=== PATIENT | female | born 1980 | race Caucasian/White ===

== ENCOUNTER 2023-10-08 08:34 | Emergency (ER) | payer BC, MEDICAID ==
[2023-10-08 09:14] LABS: BASOPHILS % (AUTO) 0.4 %; EOSINOPHILS # (AUTO) 0.3 10^3/uL (0.0-0.7); EOSINOPHILS % (AUTO) 3.2 %; HCT - HEMATOCRIT 38.3 % (37.0-47.0); HGB - HEMOGLOBIN 12.7 g/dL (12.0-16.0); LYMPHOCYTES # (AUTO) 2.2 10^3/uL (1.5-3.5); LYMPHOCYTES % (AUTO) 22.7 %; MEAN CORPUSCULAR HEMOGLOBIN 28.6 pg (27.0-31.0); MEAN CORPUSCULAR HGB CONC 33.2 g/dL (32.0-36.0); MEAN CORPUSCULAR VOLUME 86.3 fL (81.0-99.0); MEAN PLATELET VOLUME 9.2 fL (7.9-10.8); MONOCYTES # (AUTO) 0.9 10^3/uL (0.0-1.0); MONOCYTES % (AUTO) 9.8 %; NEUTROPHILS # (AUTO) 6.1 10^3/uL (1.5-6.6); NEUTROPHILS % (AUTO) 63.7 %; PLT - PLATELET COUNT 313 10^3/uL (130-450); RED BLOOD COUNT 4.44 10^6/uL (4.20-5.40); RED CELL DISTRIBUTION WIDTH 13.7 % (12.0-15.0); WHITE BLOOD COUNT 9.6 x10^3/uL (4.8-10.8)
[2023-10-08 09:19] LABS: BILIRUBIN,URINE NEGATIVE (NEGATIVE); GLUCOSE, URINE (UA) NEGATIVE (NEGATIVE); KETONES,URINE (UA) NEGATIVE (NEGATIVE); LEUKOCYTE ESTERASE, URINE NEGATIVE (NEGATIVE); NITRITE,URINE NEGATIVE (NEGATIVE); OCCULT BLOOD,URINE NEGATIVE (NEGATIVE); PROTEIN,URINE NEGATIVE (NEGATIVE); UROBILINOGEN,URINE 0.2 (NORMAL) E.U./dL (NORMAL)
[2023-10-08 09:22] LABS: CLARITY,URINE CLEAR (CLEAR); HCG UR QUAL NEGATIVE
[2023-10-08 09:42] LABS: ALBUMIN 3.9 g/dL (3.2-5.5); ALBUMIN/GLOBULIN RATIO 1.3 (1.0-2.2); BILIRUBIN,TOTAL 0.4 mg/dL (0.2-1.0); CALCIUM 9.5 mg/dL (8.5-10.3); CREATININE 0.7 mg/dL (0.6-1.3); POTASSIUM 3.8 mmol/L (3.5-4.5); TOTAL PROTEIN 6.8 g/dL (6.4-8.9)
--- NOTE | 2023-10-08 09:49 | ED Physician Documentation ---
PD HPI ABD PAIN - Stated complaint Stated Complaint: STOMACH PX,BLOATING,PX - Chief complaint Chief Complaint: Abd Pain - History obtained from History obtained from: Patient - History of Present Illness Timing - onset: How many days ago (2-3) Timing - duration: Days Timing - details: Gradual onset, Still present Quality: Cramping, Aching, Pain Location: LLQ Radiation: Lower back Associated symptoms: Nausea, Diarrhea (some loose), Loss of appetite. No: Fever, Vomiting, Constipation, Hematochezia, Near syncope / syncope Similar symptoms before: Has not had sx before Review of Systems Constitutional: denies: Fever, Chills Cardiac: denies: Chest pain / pressure Respiratory: denies: Dyspnea GI: reports: Abdominal Pain, Nausea. denies: Vomiting, Constipation, Bloody / black stool : denies: Dysuria, Frequency PD PAST MEDICAL HISTORY - Past Medical History Past Medical History: Yes Endocrine/Autoimmune: Type 2 diabetes : Kidney stones - Past Surgical History Past Surgical History: Yes - Present Medications Home Medications: Ambulatory Orders Medication Instructions Recorded Confirmed Amox/Clav 875/125 [Augmentin] 1 each PO Q12H #14 tablet 10/08/23 Docusate Sodium 100Mg Capsule 100 mg PO DAILY #15 cap 10/08/23 [Colace 100Mg Capsule] Fluconazole [Diflucan] 100 mg PO Q3D #2 tablet 10/08/23 HYDROcod/ACETAM 5/325 [[place] 5/325] 1 ea PO Q6H PRN #14 tablet 10/08/23 L.acid/L.casei/B.bif/B.joyce/Fos 1 each PO TID 7 Days #20 cap 10/08/23 [Probiotic Blend Capsule] Meloxicam [Mobic] 7.5 mg PO BID 7 Days #14 tablet 10/08/23 Ondansetron Odt [Zofran] 4 mg TL Q6H PRN #10 tablet 10/08/23 - Allergies Allergies/Adverse Reactions: Allergies Allergy/AdvReac Type Severity Reaction Status Date / Time No Known Drug Allergies Allergy Verified 10/08/23 08:48 - Social History Does the pt smoke?: No Smoking Status: Never smoker Does the pt drink ETOH?: Yes Does the pt have substance abuse?: No Substance Use and Type: Marijuana - Immunizations Immunizations are current?: Yes - POLST Patient has POLST: No PD ED PE NORMAL - Vitals Vital signs reviewed: Yes - General General: Alert and oriented X 3, No acute distress, Well developed/nourished - Cardiac Cardiac: RRR, No murmur - Respiratory Respiratory: No respiratory distress, Clear bilaterally - Abdomen Abdomen: Soft, Non distended, No organomegaly, Other (tender llq with some local guarding but no percussion nor rebound tendenrness. Rest of abd not tender. ) - Back Back: No CVA TTP, No spinal TTP - Derm Derm: Normal color, Warm and dry, No rash - Extremities Extremities: No edema, No calf tenderness / cord Results - Vitals Vitals: Oxygen O2 Source Room air - Labs Labs: Laboratory Tests 10/08/23 10/08/23 10/08/23 09:04 09:08 09:22 WBC 9.6 RBC 4.44 Hgb 12.7 Hct 38.3 MCV 86.3 MCH 28.6 MCHC 33.2 RDW 13.7 Plt Count 313 MPV 9.2 Neut # (Auto) 6.1 Lymph # (Auto) 2.2 [place] # (Auto) 0.9 Eos # (Auto) 0.3 Baso # (Auto) 0.0 Absolute Nucleated RBC 0.00 Nucleated RBC % 0.0 Sodium 136 Potassium 3.8 Chloride 104 Carbon Dioxide 23 Anion Gap 9.0 BUN 12 Creatinine 0.7 Estimated GFR (MDRD) 91 Glucose 189 H Calcium 9.5 Total Bilirubin 0.4 AST 12 ALT 14 Alkaline Phosphatase 81 Total Protein 6.8 Albumin 3.9 Globulin 2.9 Albumin/Globulin Ratio 1.3 Lipase 20 Urine Color YELLOW Urine Clarity CLEAR Urine pH 6.0 Ur Specific [place] >=1.030 H Urine Protein NEGATIVE Urine Glucose (UA) NEGATIVE Urine Ketones NEGATIVE Urine Occult Blood NEGATIVE Urine Nitrite NEGATIVE Urine Bilirubin NEGATIVE Urine Urobilinogen 0.2 (NORMAL) Ur Leukocyte Esterase NEGATIVE Ur Microscopic Review NOT INDICATED Urine Culture Comments NOT INDICATED Urine HCG, Qual NEGATIVE - Rads (name of study) abd/pelvic CT Relevant Findings:: Prelim report reviewed (local diverticulitis sigmoid area without abscess nor perforation. ), EMP independent interpretation of test PD Medical Decision Making - ED course Complexity details: reviewed results (abd/pelvic CT showing uncomplicated diverticulitis. ), considered differential (left lower abd pain increased for 2- 3 days. Exam without peritoneal signs. Location and progression suggests likely diverticulitis. Consider UTI/pyelo as options too. No skin sores/tender and not in dermatomal area to support early shingles. No recent traume. ), d/w patient Departure - Departure Disposition: 01 Home, Self Care Clinical Impression: Left lower quadrant abdominal pain, Acute diverticulitis Condition: Stable Record reviewed to determine appropriate education?: Yes Instructions: ED Diverticulitis Prescriptions: Amox/Clav 875/125 [Augmentin] 1 each PO Q12H #14 tablet Docusate Sodium 100Mg Capsule [Colace 100Mg Capsule] 100 mg PO DAILY #15 cap Fluconazole [Diflucan] 100 mg PO Q3D #2 tablet Meloxicam [Mobic] 7.5 mg PO BID 7 Days #14 tablet HYDROcod/ACETAM 5/325 [[place] 5/325] 1 ea PO Q6H PRN #14 tablet PRN Reason: Pain L.acid/L.casei/B.bif/B.joyce/Fos [Probiotic Blend Capsule] 1 each PO TID 7 Days #20 cap Ondansetron Odt [Zofran] 4 mg TL Q6H PRN #10 tablet PRN Reason: Nausea / Vomiting Comments: Your CT scan shows an uncomplicated diverticulitis which means no signs of perforation or abscess. You do have a local area of inflammation and infection in the lower intestine causing your pain. We typically treat this with an anti-inflammatory as well as an antibiotic and a mild stool softener. For symptoms would have you take ondansetron if needed for nausea. Tylenol or Percocet if needed for pain. 2 decrease the side effects of the antibiotic, would also use some probiotics a nd I prescribed a Diflucan antifungal to help with reducing yeast infection. Frequent fluids and regular diet as tolerated. I would anticipate improvement over the next few days and resolved by 3 to 5 days. Return if worsening or other complications such as fever, bloody stool, worse pain, vomiting etc. I sent your prescriptions to the [facility] pharmacy. I am prescribing a short course of narcotic pain medication for you. These are potentially dangerous and addictive medications that should be used carefully. These medications may constipate you. Take an btvg-vvl-nonbnqi stool softener such as docusate twice daily with plenty of water while taking these medications. If you go 24 hours without a bowel movement, take tuyk-abx-ktmnpuh MiraLAX, per package instructions. Do not drink or drive while taking these medications. If you received narcotic or sedating medications while in the emergency department do not drive for 24 hours. Store this medication in a safe, secure place and out of reach of children. It is a violation of federal law to give or sell this medication to another person or to use in a manner other than prescribed. The ED will not refill narcotic prescriptions, including prescriptions lost or stolen. You can dispose of unwanted medications at the [facility]'s office or at several pharmacies such as [facility]. Forms: PCP List Discharge Date/Time: 10/08/23 14:03
[2023-10-08] MEDS: SODIUM CHLORIDE 0.9% 1,000 ML IV STA (10:10)
[2023-10-08] MEDS: KETOROLAC 15 MG/ML VIAL IVP STA (10:10)
[2023-10-08] MEDS: HYDROmorphone 1 MG/ML CARPUJECT IVP STA ×2 (10:11→13:50)
[2023-10-08] MEDS ORDERED: iohexoL-300 100 ML VIAL ONE (10:29)
--- NOTE | 2023-10-08 11:23 | CT Report ---
PROCEDURE: Abdomen/Pelvis W INDICATIONS: left abd pain for 1-2 days, increasing CONTRAST: Omni 300 100ml TECHNIQUE: After the administration of intravenous contrast, a CT scan of the abdomen and pelvis was performed. Images were recorded and evaluated at appropriate window settings. Reformats: coronal and sagittal. F or radiation dose reduction, the following was used: automated exposure control, adjustment of mA and /or kV according to patient size. COMPARISON: None. FINDINGS: Image quality: Diagnostic. Lower chest: Unremarkable. Liver: No solid mass. Mild steatosis. Gallbladder and biliary tree: No stones or wall thickening. Spleen: No splenomegaly. Pancreas: No pancreatic ductal dilation. Adrenals: No adrenal nodule. Kidneys and ureters: No hydronephrosis. No renal cystic lesion which requires follow up. No solid mas s. Stomach, bowel and peritoneum: No bowel distension. There is a thickened segment of descending colon with pericolonic inflammatory change. Calcifications are present. Minimal scattered pericolonic flui d is present as well as minimal dependent pelvic fluid. No free air. Several scattered subcentimeter lymph nodes. Lymph nodes: No central or retroperitoneal adenopathy. Vessels: No infrarenal aortic aneurysm. PELVIS Reproductive organs: Unremarkable. Bladder: No abnormal wall thickening, accounting for underdistention. Pelvic lymph nodes: No pelvic adenopathy by size criteria. Bones: No aggressive osseous abnormality. Other: No significant ventral or inguinal hernia. IMPRESSION: Descending colon focal thickening and inflammatory change most consistent with colitis secondary to d iverticulitis. However, recommend interval follow-up to document resolution as underlying mass second rashmi to malignancy cannot be definitively excluded. Reviewed by: Kimberly Neff MD on 10/08/2023 11:21 AM PDT Approved by: Kimberly Neff MD on 10/08/2023 11:21 AM PDT Station ID: [id number]
[2023-10-08] MEDS: AMPICILLIN/SULBACTAM 1.5 GM in SODIUM CHLORIDE 0.9% MINIBAG 100 ML IV STA (12:07)
[2023-10-08 14:09] VITALS: BP 121/65; O2SAT 95
[2023-10-08] MEDS: iohexoL-300 100 ML VIAL IVP ONE (21:30)
== END 2023-10-08 14:03 | disposition home or self-care (01) ==
LOC: ED 08:34
DX: K57.32 Diverticulitis of large intestine without perforation or abscess without bleeding (principal); E11.9 Type 2 diabetes mellitus without complications
CPT/HCPCS: 36415; 74177; 80053; 81003; 81025; 83690; 85025; 96365; 96375; 99284; J1170; Q9967; 81001; 87086

== ENCOUNTER 2023-12-16 20:45 | Emergency (ER) | payer OTHER ==
[2023-12-16 21:14] LABS: BASOPHILS % (AUTO) 0.5 %; EOSINOPHILS # (AUTO) 0.3 10^3/uL (0.0-0.7); EOSINOPHILS % (AUTO) 3.9 %; HCT - HEMATOCRIT 40.7 % (37.0-47.0); HGB - HEMOGLOBIN 13.5 g/dL (12.0-16.0); LYMPHOCYTES # (AUTO) 1.9 10^3/uL (1.5-3.5); LYMPHOCYTES % (AUTO) 23.2 %; MEAN CORPUSCULAR HEMOGLOBIN 29.1 pg (27.0-31.0); MEAN CORPUSCULAR HGB CONC 33.2 g/dL (32.0-36.0); MEAN CORPUSCULAR VOLUME 87.7 fL (81.0-99.0); MEAN PLATELET VOLUME 9.4 fL (7.9-10.8); MONOCYTES # (AUTO) 0.3 10^3/uL (0.0-1.0); MONOCYTES % (AUTO) 3.6 %; NEUTROPHILS # (AUTO) 5.7 10^3/uL (1.5-6.6); NEUTROPHILS % (AUTO) 68.7 %; PLT - PLATELET COUNT 279 10^3/uL (130-450); RED BLOOD COUNT 4.64 10^6/uL (4.20-5.40); RED CELL DISTRIBUTION WIDTH 14.5 % (12.0-15.0); WHITE BLOOD COUNT 8.3 x10^3/uL (4.8-10.8)
[2023-12-16 21:22] LABS: ALBUMIN 4.4 g/dL (3.2-5.5); ALBUMIN/GLOBULIN RATIO 1.6 (1.0-2.2); BILIRUBIN,TOTAL 0.4 mg/dL (0.2-1.0); CREATININE 0.8 mg/dL (0.6-1.3); POTASSIUM 3.6 mmol/L (3.5-4.5); TOTAL PROTEIN 7.2 g/dL (6.4-8.9)
--- NOTE | 2023-12-16 21:54 | ED Physician Documentation ---
PD HPI ABD PAIN - Stated complaint Stated Complaint: ABD PX/VOMITING - Chief complaint Chief Complaint: Abd Pain - History obtained from History obtained from: Patient - Additional information Additional information: HPI from patient. Patient c/o abdominal pain, generalized but most pronounced in LLQ. Pain is worse with palpation, movement. No ameliorating factors. Even without palpation or movement, the pain has been waxing and waning and, when most severe, associated with diaphoresis, nausea and vomiting. Denies fever, blood in stool She first had this pain in late September of this year and was evaluated in this ED 10/08/[address] s/o diverticulitis. She was prescribed augmentin and she says the symptoms gradually improved but never fully resolved. She thus followed up in outpatient setting with PCP, w/u included repeat CT A/P; patient says there was diverticulosis and bowel inflammation but, per patient, it sounds like the diagnosis at that point was colitis and not specifically diverticulitis. She was prescribed two antibiotics, she thinks ciprofloxacin and metronidazole (does not recall initially but when I mention these she then seems to recall these were the prescribed abx). She has had diarrhea since the initial pains back in September, not certain if the diarrhea started before or after the augmentin. Patient is scheduled for colonoscopy this . Review of Systems Constitutional: reports: Sweats. denies: Fever, Chills Cardiac: reports: Reviewed and negative Respiratory: reports: Reviewed and negative GI: reports: Abdominal Pain, Nausea, Vomiting. denies: Abdominal Swelling PD PAST MEDICAL HISTORY - Past Medical History Past Medical History: Yes Endocrine/Autoimmune: Type 2 diabetes : Kidney stones - Past Surgical History Past Surgical History: Yes - Present Medications Home Medications: Ambulatory Orders Medication Instructions Recorded Confirmed Amox/Clav 875/125 [Augmentin] 1 each PO Q12H #14 tablet 10/08/23 Docusate Sodium 100Mg Capsule 100 mg PO DAILY #15 cap 10/08/23 [Colace 100Mg Capsule] Fluconazole [Diflucan] 100 mg PO Q3D #2 tablet 10/08/23 HYDROcod/ACETAM 5/325 [[place] 5/325] 1 ea PO Q6H PRN #14 tablet 10/08/23 L.acid/L.casei/B.bif/B.joyce/Fos 1 each PO TID 7 Days #20 cap 10/08/23 [Probiotic Blend Capsule] Meloxicam [Mobic] 7.5 mg PO BID 7 Days #14 tablet 10/08/23 Ondansetron Odt [Zofran] 4 mg TL Q6H PRN #10 tablet 10/08/23 Ciprofloxacin HCl [Cipro] 500 mg PO BID #20 tablet 12/17/23 HYDROcod/ACETAM 5/325 [[place] 5/325] 1 - 2 tablet PO Q6H PRN #14 tablet 12/17/23 metroNIDAZOLE [Flagyl] 500 mg PO BID 10 Days #20 tablet 12/17/23 - Allergies Allergies/Adverse Reactions: Allergies Allergy/AdvReac Type Severity Reaction Status Date / Time No Known Drug Allergies Allergy Verified 12/16/23 20:58 - Social History Does the pt smoke?: No Smoking Status: Never smoker Does the pt drink ETOH?: Yes Does the pt have substance abuse?: No - Immunizations Immunizations are current?: Yes - POLST Patient has POLST: No PD ED PE NORMAL - Vitals Vital signs reviewed: Yes - General General: Alert and oriented X 3, Well developed/nourished, Other (appears uncomfortable, mild-moderate painful distress at times during H+P) - Cardiac Cardiac: RRR, No murmur - Respiratory Respiratory: No respiratory distress, Clear bilaterally - Abdomen Abdomen: Normal bowel sounds, Soft, Non distended PD ED PE EXPANDED - Abdomen Abdomen: Tender to palpation, Guarding (voluntary), Generalized/diffuse (most pronounced left abdomen). No: Distended, Rebound Results - Vitals Vitals: Oxygen O2 Source Room air - Labs Labs: Laboratory Tests 12/16/23 12/16/23 21:05 21:05 WBC 8.3 RBC 4.64 Hgb 13.5 Hct 40.7 MCV 87.7 MCH 29.1 MCHC 33.2 RDW 14.5 Plt Count 279 MPV 9.4 Neut # (Auto) 5.7 Lymph # (Auto) 1.9 [place] # (Auto) 0.3 Eos # (Auto) 0.3 Baso # (Auto) 0.0 Absolute Nucleated RBC 0.00 Nucleated RBC % 0.0 Sodium 136 Potassium 3.6 Chloride 102 Carbon Dioxide 24 Anion Gap 10.0 BUN 11 Creatinine 0.8 Estimated GFR (MDRD) 78 L Glucose 137 H Calcium 10.0 Total Bilirubin 0.4 AST 18 ALT 20 Alkaline Phosphatase 58 Total Protein 7.2 Albumin 4.4 Globulin 2.8 Albumin/Globulin Ratio 1.6 Lipase 24 - Rads (name of study) CT A/P with IV contrast Relevant Findings:: Prelim report reviewed, See rad report PD Medical Decision Making - ED course Complexity details: reviewed old records (reviewed ED records/test results from 10/08/23 visit), reviewed results, re-evaluated patient, considered differential, d/w patient ED course: Normal CBC. ER abdominal panel with insignificant/noncontributory findings of mildly low GFR (78) and mild hyperglycemia (137) but otherwise normal including normal LFTs, lipase. Despite these results, she is in obvious painful distress at times during H+P and has significant tenderness on abdominal exam, and thus CT A/P is undertaken. CT with findings c/w transverse and descending colitis. There is also possible mass lesion in descending colon per radiologist's reading. Patient is given 1mg IV dilaudid, 4mg IV zofran, 1 liter NS IV, and 30mg IV toradol. On reevaluation, she is in NAD and reports effective symptom relief. Results d/w patient including CT findings; I reviewed with her the findings s/o colitis as well as concern for colonic mass. She is given 500mg Flagyl and 500mg cipro PO, provided take-home pack vicodin, and e-prescribed all three of these medications. She is scheduled for colonoscopy this and verbalizes understanding of the importance of keeping this appointment. Return precautions reviewed. Departure - Departure Disposition: Home, Self Care Clinical Impression: Colitis Condition: Good Instructions: ED Gastroenteritis Non Infec Prescriptions: Ciprofloxacin HCl [Cipro] 500 mg PO BID #20 tablet metroNIDAZOLE [Flagyl] 500 mg PO BID 10 Days #20 tablet HYDROcod/ACETAM 5/325 [[place] 5/325] 1 - 2 tablet PO Q6H PRN #14 tablet PRN Reason: Pain Comments: There were no concerning nor diagnostic findings on tonight's blood tests. However, your CT scan shows significant inflammation of your colon (colitis). The exact cause of this finding is not apparent at this time. Because one of the possible causes is bacterial infection, I am putting you back on antibiotics. You were given the first doses of the antibiotics (ciprofloxacin, metronidazole) in the emergency department, and I have electronically submitted a prescription for a 10-day course of these antibiotics to the [facility] in [place], along with a prescription for vicodin (narcotic/opiate pain medication). As we discussed, there was also a finding on the CT scan concerning for a mass in your colon, and one possible explanation for this finding is colon cancer. This is not a diagnosis that can be made on CT, but the colonoscopy you have scheduled for later this week would likely address this finding. I am prescribing a short course of narcotic pain medication for you. These are potentially dangerous and addictive medications that should be used carefully. These medications may constipate you. Take an pljw-ujr-kwtmfgu stool softener (docusate) twice daily with plenty of water while taking these medications. If you go 24 hours without a bowel movement, take jucu-esp-lsraueo miralax, per package instructions. Do not drink or drive while taking these medications. If you received narcotic or sedating medications while in the emergency department, do not drive for 24 hours. Store this medication in a safe, secure place and out of reach of children. It is a violation of federal law to give or sell this medication to another person or to use in a manner other than prescribed. The ED will not refill narcotic prescriptions, including prescriptions lost or stolen. To dispose of unwanted medications: 1. [facility] [address] in [place] has a medication drop box. They accept prescription medications (in pill form) Saturday through Saturday 9:00 a.m. to 5:00 p.m. 2. The [facility] [employer] accepts prescription medications (in pill form only) for disposal year round. Call for more information. 3. Contact the [facility] for the next [facility] sponsored prescription drug collection event. , [phone], or [phone]; Discharge Date/Time: 12/17/23 04:03
[2023-12-16] MEDS: iohexoL-300 100 ML VIAL IVP ONE (23:27)
[2023-12-16] MEDS: ONDANSETRON 4 MG/2 ML VIAL IVP STA (23:42)
[2023-12-16] MEDS: KETOROLAC 30 MG/ML VIAL IVP STA (23:42)
[2023-12-16] MEDS: HYDROmorphone 1 MG/ML CARPUJECT IVP STA (23:42)
[2023-12-16] MEDS: SODIUM CHLORIDE 0.9% 1,000 ML IV STA (23:43)
--- NOTE | 2023-12-17 02:13 | CT Report ---
PROCEDURE: Abdomen/Pelvis W INDICATIONS: abd. pain CONTRAST: Omni 300, 100mls TECHNIQUE: After the administration of intravenous contrast, a CT scan of the abdomen and pelvis was performed. Images were recorded and evaluated at appropriate window settings. Reformats: coronal and sagittal. F or radiation dose reduction, the following was used: automated exposure control, adjustment of mA and /or kV according to patient size. COMPARISON: CT abdomen/pelvis 10/08/2023. FINDINGS: Image quality: Diagnostic. Lower chest: Unremarkable. Liver: No solid mass. Gallbladder: No radiopaque stones or wall thickening. Biliary tree: No intrahepatic or extrahepatic dilation, accounting for age. Spleen: No splenomegaly. Pancreas: No pancreatic ductal dilation. Adrenals: No adrenal nodule. Kidneys and ureters: No hydronephrosis. No renal cystic lesion which requires follow up. No solid mas s. Left inferior pole 7 mm calculus. Stomach, bowel and peritoneum: Left-sided abdominal wall thickening is seen throughout the transverse and descending colon with pericolonic fat stranding at the mid descending colon. Focal irregular thi ckening at the mid descending colon measuring up to 4.5 cm in length And pericolonic stranding appear similar when compared to the CT from 10/08/2023. Nearby left lower quadrant metastatic lymph node saroj sures up to 8 mm in short axis and is nonspecific. No pathologic free fluid. Lymph nodes: No central or retroperitoneal adenopathy. Vessels: No infrarenal aortic aneurysm. Patent portal vein. PELVIS Reproductive organs: Unremarkable. Bladder: No abnormal wall thickening, accounting for underdistention. Pelvic lymph nodes: No pelvic adenopathy by size criteria. Bones: No aggressive osseous abnormality. Other: No significant ventral or inguinal hernia. IMPRESSION: 1.Long segment bowel wall thickening in the transverse and descending colon is suspicious for a nonsp ecific colitis. 2.Focal irregular masslike thickening at the mid descending colon with pericolonic stranding, similar in location to the reported prior inflammatory changes on CT from 10/08/2023. Given persistence, find ings are suspicious for colonic malignancy, possibly with extramural invasion. Recommend correlation with colonoscopy when clinically feasible. Reviewed by: Burton Ledezma MD on 12/17/2023 2:12 AM PDT Approved by: Burton Ledezma MD on 12/17/2023 2:12 AM PDT Station ID: [id number]
[2023-12-17] MEDS: CIPROFLOXACIN 250 MG TABLET PO STA (03:44)
[2023-12-17] MEDS: metroNIDAZOLE 250 MG TABLET PO STA (03:45)
[2023-12-17] MEDS: HYDROcod/ACET 5/325 Prepack 4 PO STA (03:46)
[2023-12-17 04:08] VITALS: BP 155/89; O2SAT 98
== END 2023-12-17 04:03 | disposition home or self-care (01) ==
LOC: ED 20:45
DX: K52.9 Noninfective gastroenteritis and colitis, unspecified (principal); N20.0 Calculus of kidney; E11.65 Type 2 diabetes mellitus with hyperglycemia
CPT/HCPCS: 36415; 74177; 80053; 83690; 85025; 96361; 96374; 99284; A9270; J1170; Q9967

== ENCOUNTER 2023-12-20 14:31 | Outpatient (CLI) | payer OTHER ==
[2023-12-20] MEDS ORDERED: iohexoL-300 100 ML VIAL ONE (14:44)
[2023-12-20] MEDS: iohexoL-300 100 ML VIAL IVP ONE (15:42)
--- NOTE | 2023-12-20 15:52 | CT Report ---
PROCEDURE: Chest W INDICATIONS: ABNORMAL CT SCAN with suspicion of a descending colonic mass. CONTRAST: 100ml omni 300 TECHNIQUE: After the administration of intravenous contrast, a CT scan of the chest was performed. Images were recorded and evaluated at appropriate window settings. Reformats: axial MIP of the chest, coronal and sagittal. For radiation dose reduction, the following was used: automated exposure control, adjustme nt of mA and/or kV according to patient size. COMPARISON: CT abdomen and pelvis dated 12/16/2023 FINDINGS: Image quality: Diagnostic. Chest wall and lower neck: No thyroid nodule which requires sonographic follow up. No breast mass. No axillary or supraclavicular adenopathy by size. Lungs and pleura: No consolidation. No pleural effusions. No pneumothorax. Small nonspecific mildly thick-walled cavitary lesion, posterior right apex, image 21 of series 4. This does not have a typica l appearance for metastatic colon cancer. No other pulmonary nodules identified. Mediastinum: Heart size is normal. No pericardial effusion. No large vessel abnormality. No mediastin al adenopathy by size criteria. Bones: No aggressive osseous abnormality. Upper Abdomen: Unremarkable. IMPRESSION: 1. Solitary nonspecific small cavitary right apical nodule measuring 5 mm. 2. No other findings which are suspicious for metastatic disease in the chest. Reviewed by: Chiki Chaudhry MD on 12/20/2023 3:50 PM PDT Approved by: Chiki Chaudhry MD on 12/20/2023 3:50 PM PDT Station ID: [id number]
== END 2023-12-20 14:32 | disposition home or self-care (01) ==
LOC: DI 14:31
PROVIDERS: ATTEND Physician Assistant
DX: R91.1 Solitary pulmonary nodule (principal)
CPT/HCPCS: 71260; Q9967

== ENCOUNTER 2024-01-30 15:30 | Outpatient (CLI) | payer OTHER ==
[2024-01-30 20:29] LABS: ESTIMATED AVERAGE GLUCOSE 131 mg/dL (70-100); HEMOGLOBIN A1c% 6.2 % (4.27-6.07)
== END 2024-01-30 15:31 | disposition home or self-care (01) ==
LOC: LAB 15:30
PROVIDERS: ATTEND Naturopath
DX: E11.65 Type 2 diabetes mellitus with hyperglycemia (principal); E55.9 Vitamin D deficiency, unspecified
CPT/HCPCS: 36415; 82306; 83036

== ENCOUNTER 2024-02-04 17:45 | Outpatient (CLI) | payer OTHER ==
[2024-02-04] MEDS ORDERED: DIATRIZOATE MEGLU/DIATRIZO SOD 30 ML BOTTLE PO ONE (17:56)
[2024-02-04] MEDS ORDERED: iohexoL-300 100 ML VIAL ONE (17:56)
--- NOTE | 2024-02-04 20:04 | CT Report ---
PROCEDURE: Chest W INDICATIONS: COLON CA CONTRAST: Omni 300 100ml TECHNIQUE: After the administration of intravenous contrast, a CT scan of the chest was performed. Images were recorded and evaluated at appropriate window settings. Reformats: axial MIP of the chest, coronal and sagittal. For radiation dose reduction, the following was used: automated exposure control, adjustme nt of mA and/or kV according to patient size. COMPARISON: CT chest 12/20/2023 FINDINGS: Image quality: Diagnostic. Chest wall and lower neck: No thyroid nodule which requires sonographic follow up. No breast mass. No axillary or supraclavicular adenopathy by size. Lungs and pleura: No consolidation. No pleural effusions. No pneumothorax. Cavitary nodule medial ri ght upper lobe measuring 5 mm is unchanged. Mediastinum: Heart size is normal. No pericardial effusion. No large vessel abnormality. No mediastin al adenopathy by size criteria. Bones: No aggressive osseous abnormality. Upper Abdomen: Unremarkable. IMPRESSION: Unchanged medial right upper lobe cavitary nodule measuring 5 mm. Reviewed by: Kimberly Neff MD on 02/04/2024 8:03 PM PDT Approved by: Kimberly Neff MD on 02/04/2024 8:03 PM PDT Station ID: [id number]
--- NOTE | 2024-02-04 20:13 | CT Report ---
PROCEDURE: Abdomen/Pelvis W INDICATIONS: COLON CA CONTRAST: Omni 300 100ml TECHNIQUE: After the administration of intravenous contrast, a CT scan of the abdomen and pelvis was performed. Images were recorded and evaluated at appropriate window settings. Reformats: coronal and sagittal. F or radiation dose reduction, the following was used: automated exposure control, adjustment of mA and /or kV according to patient size. COMPARISON: None. FINDINGS: Image quality: Diagnostic. Lower chest: Unremarkable. Liver: No solid mass. Number measures 19.5 cm with steatosis. Gallbladder: Unremarkable. Biliary tree: No intrahepatic or extrahepatic dilation, accounting for age. Spleen: No splenomegaly. Pancreas: No pancreatic ductal dilation. Adrenals: No adrenal nodule. Kidneys and ureters: No hydronephrosis. No renal cystic lesion which requires follow up. No solid mas s. Simple bilateral renal cysts. Stomach, bowel and peritoneum: No gastric or small bowel dilation. Radiolucency prior exam postsurgic al hemicolectomy changes are present.. No pathologic free fluid. Soft tissue density adjacent to the right colon on series 2 image 80 measured 2.5 x 1.9 cm compared to 2.6 x 1.9 cm. Soft tissue density in the anterior mesenteric fat on the left measures 0.9 x 1.0 cm compared to 0.6 x 0.8 cm. Lymph nodes: No central or retroperitoneal adenopathy. Vessels: No infrarenal aortic aneurysm. Patent portal vein. PELVIS Reproductive organs: Unremarkable. Bladder: No abnormal wall thickening, accounting for underdistention. Pelvic lymph nodes: No pelvic adenopathy by size criteria. Bones: No aggressive osseous abnormality. Other: No significant ventral or inguinal hernia. IMPRESSION: Interval postsurgical hemicolectomy changes. Interval enlargement of previously present soft tissue densities in the anterior left and lateral rig ht abdomen highly suspicious for metastatic disease. Reviewed by: Kimberly Neff MD on 02/04/2024 8:11 PM PDT Approved by: Kimberly Neff MD on 02/04/2024 8:11 PM PDT Station ID: [id number]
[2024-02-04] MEDS: iohexoL-300 100 ML VIAL IVP ONE (21:01)
[2024-02-04] MEDS: DIATRIZOATE MEGLU/DIATRIZO SOD 30 ML BOTTLE PO ONE (21:01)
== END 2024-02-04 17:46 | disposition home or self-care (01) ==
LOC: DI 17:45
PROVIDERS: ATTEND Naturopath
DX: C18.6 Malignant neoplasm of descending colon (principal); R91.1 Solitary pulmonary nodule; Z90.49 Acquired absence of other specified parts of digestive tract
CPT/HCPCS: 71260; 74177; Q9963; Q9967

== ENCOUNTER 2024-10-12 15:57 | Inpatient (IN) ==
--- OUTSIDE RECORDS SUMMARY | 2024-10-12 16:38 | EXTERNAL MEDICAL SUMMARY RPT | Continuity of Care Document ---
Author Organization [facility] Address [address] [place] [id number] Phone Care Team Providers Care Patternmaker Wood Name Role Phone Kassidy Humphries Unavailable Unavailable Medications date description facility 2024-09-09 00:00 [facility] Problems date description facility 2024-07-21 19:19 Vomiting, unspecified [facility] 2024-09-09 00:00 Abdominal pain [facility] 2024-09-27 10:35 Malignant neoplasm of colon, un specified [facility] 2024-09-27 10:35 Neoplasm related pain (acute) ( chronic) [facility] 2024-09-29 10:33 Unspecified abdominal pain [facility] 2024-10-01 13:53 Malignant neoplasm of colon, un specified [facility] 2024-10-01 13:53 Neoplasm related pain (acute) ( chronic) [facility] 2024-10-01 13:53 Lower abdominal pain, unspecifi ed [facility] 2024-10-01 13:53 Left lower quadrant pain [facility] 2024-10-01 13:53 Periumbilical pain [facility] 2024-10-12 12:39 Neoplasm related pain (acute) ( chronic) [facility] 2024-10-12 12:39 Constipation, unspecified [facility] 2024-10-12 12:39 Shortness of breath [facility] 2024-10-12 16:18 Neoplasm related pain (acute) ( chronic) [facility] 2024-10-12 16:18 Constipation, unspecified [facility] 2024-10-12 16:18 Shortness of breath [facility] Results/Labs test date facility value unit notes Result panel 1 [facility]-07[facility]21 [facility] 10 u/l As of January 2023 testing method has changed, this may include reference ranges. NUCLEATED RED BLOOD CELLS AUTO 2024-07-21 14:12 [facility] 0.0 /100wbc (missing) BASOPHILS # (AUTO) 2024-07-21 14:12 [facility] 0.0 10 3/ul (missing) NRBC ABSOLUTE COUNT (AUTO) 2024-07-21 14:12 [facility] 0.00 x10 3/ul (missing) EOSINOPHILS # (AUTO) 2024-07-21 14:12 [facility] 0.4 10 3/ul (missing) BILIRUBIN,TOTAL 2024-07-21 14:12 [facility] 0.6 mg /dl As of January 2023 testing method has changed, this may include reference ranges. CREATININE 2024-07-21 14:12 [facility] 0.7 mg/dl As of January 2023 testing method has changed, this may include reference ranges. MONOCYTES # (AUTO) 2024-07-21 14:12 [facility] 0.9 10 3/ul (missing) ALBUMIN/GLOBULIN RATIO 2024-07-21 14:12 [facility] 1.9 (missing) (missing) CHLORIDE 2024-07-21 14:12 [facility] 103 mmol/l As of January 2023 testing method has changed, this may include reference ranges. ANION GAP 2024-07-21 14:12 [facility] 11.0 (missing ) (missing) WHITE BLOOD COUNT 2024-07-21 14:12 [facility] 11.1 x10 3/ul (missing) GLUCOSE 2024-07-21 14:12 [facility] 121 mg/dl As of January 2023 testing method has changed, this may include reference ranges. RED CELL DISTRIBUTION WIDTH 2024-07-21 14:12 [facility] 13.5 % (missing) BUN - BLOOD UREA NITROGEN 2024-07-21 14:12 [facility] 14 mg/dl As of Jan testing method has changed, this may include reference ranges. SODIUM 2024-07-21 14:12 [facility] 140 mmol/l As of January 2023 testing method has changed, this may include reference ranges. HGB - HEMOGLOBIN 2024-07-21 14:12 [facility] 15.2 g /dl (missing) LYMPHOCYTES # (AUTO) 2024-07-21 14:12 [facility]0 10 3/ul (missing) GLOBULIN 2024-07-21 14:12 [facility] 2.6 g/dl (missing) AST ASPARTATE AMINOTRANSFERASE 2024-07-21 14:12 [facility] 20 iu/l As of January 2023 testing method has changed, this may include reference ranges. ALT ALANINE AMINOTRANSFERASE 2024-07-21 14:12 [facility] 24 iu/l As of January 2023 testing method has changed, this may include reference ranges. CARBON DIOXIDE - CO2 2024-07-21 14:12 [facility] 26 mmol/l As of January 2023 testing method has changed, this may include reference ranges. PLT - PLATELET COUNT 2024-07-21 14:12 [facility] 305 10 3/ul (missing) MEAN CORPUSCULAR HEMOGLOBIN 2024-07-21 14:12 [facility] 31.3 pg (missing) MEAN CORPUSCULAR HGB CONC 2024-07-21 14:12 [facility] 33.4 g/dl (missing) POTASSIUM 2024-07-21 14:12 [facility] 4.6 mmol/l As of January 2023 testing method has changed, this may include reference ranges. RED BLOOD COUNT 2024-07-21 14:12 [facility] 4.86 10 6/ul (missing) HCT - HEMATOCRIT 2024-07-21 14:12 [facility] 45.5 % (missing) ALBUMIN 2024-07-21 14:12 [facility] 5.0 g/dl As of January 2023 testing method has changed, this may include reference ranges. TOTAL PROTEIN 2024-07-21 14:12 [facility] 7.6 g/dl As of January 2023 testing method has changed, this may include reference ranges. NEUTROPHILS # (AUTO) 2024-07-21 14:12 [facility] 7.8 10 3/ul (missing) ALKALINE PHOSPHATASE 2024-07-21 14:12 [facility] 79 iu/l As of January 2023 testing method has changed, this may include reference ranges. MEAN PLATELET VOLUME 2024-07-21 14:12 [facility] 9.7 fl (missing) CALCIUM 2024-07-21 14:12 [facility] 9.8 mg/dl As of January 2023 testing method has changed, this may include reference ranges. GFR - MDRD 2024-07-21 14:12 [facility] 90 (molly ba) Social History date description facility 2024-09-08 00:00 Never smoked tobacco (finding) [facility] Vital Signs date measurement value units 2024-09-08 00:00 BMI 27.4 kg/m2 2024-09-08 00:00 height_metric 160.02 cm 2024-09-08 00:00 height_standard 63 in 2024-09-08 00:00 temperature_metric 37.11 C 2024-09-08 00:00 temperature_standard 98.8 F 2024-09-08 00:00 weight_metric 70.3 kg 2024-09-08 00:00 weight_standard 154.98 lb 2024-09-09 00:00 BP_diastolic 86 mmHg 2024-09-09 00:00 BP_systolic 160 mmHg 2024-09-09 00:00 heart_rate 77 /min 2024-09-09 00:00 o2_saturation 97 % 2024-09-09 00:00 respiration_rate 16 /min
[2024-10-12 16:58] LABS: BASOPHILS % (AUTO) 0.4 %; HCT - HEMATOCRIT 40.8 % (37.0-47.0); HGB - HEMOGLOBIN 13.1 g/dL (12.0-16.0); MEAN CORPUSCULAR HEMOGLOBIN 30.3 pg (27.0-31.0); MEAN CORPUSCULAR HGB CONC 32.1 g/dL (32.0-36.0); MEAN CORPUSCULAR VOLUME 94.4 fL (81.0-99.0); MEAN PLATELET VOLUME 9.9 fL (7.9-10.8); NEUTROPHILS % (AUTO) 80.8 %; PLT - PLATELET COUNT 368 10^3/uL (130-450); RED BLOOD COUNT 4.32 10^6/uL (4.20-5.40); RED CELL DISTRIBUTION WIDTH 12.4 % (12.0-15.0); WHITE BLOOD COUNT 18.5 x10^3/uL (4.8-10.8)
[2024-10-12 17:07] LABS: SLIDE REVIEW? Indicated
[2024-10-12 17:08] LABS: ABNORMAL LYMPHS % (MANUAL) 0 %
[2024-10-12 17:13] LABS: LACTIC ACID, VENOUS 4.5 mmol/L (0.5-2.2)
[2024-10-12 17:18] LABS: ALBUMIN 3.3 g/dL (3.2-5.5); ALBUMIN/GLOBULIN RATIO 0.9 (1.0-2.2); BILIRUBIN,TOTAL 1.9 mg/dL (0.2-1.0); CALCIUM 8.5 mg/dL (8.5-10.3); CREATININE 1.2 mg/dL (0.6-1.3); POTASSIUM 4.8 mmol/L (3.5-4.5); TOTAL PROTEIN 6.9 g/dL (6.4-8.9)
--- NOTE | 2024-10-12 17:19 | XRAY Report ---
PROCEDURE: XR Chest 1V INDICATIONS: Sepsis screening TECHNIQUE: One view of the chest was acquired. COMPARISON: CT angiogram of chest dated 10/11/2024. FINDINGS: Surgical changes and devices: None. Lungs and pleura: No pleural effusions or pneumothorax. Extensive airspace opacities are seen scatte red throughout bilateral lung mejia. Mediastinum: Mediastinal contours appear normal. Heart size is normal. Bones and chest wall: No suspicious bony lesions. Overlying soft tissues appear unremarkable. IMPRESSION: Extensive bilateral pulmonary opacities concerning for extensive bilateral multilobar inf iltrates. No pleural effusion or pneumothorax. Reviewed by: Max Quigley MD on 10/12/2024 5:17 PM PDT Approved by: Max Quigley MD on 10/12/2024 5:17 PM PDT Station ID: [id number]
[2024-10-12 17:25] LABS: PARTIAL THROMBOPLASTIN TIME 26.8 secs (24.9-33.3)
[2024-10-12] MEDS: SODIUM CHLORIDE 0.9% 1,000 ML IV STA ×2 (17:25→18:13)
[2024-10-12] MEDS: HYDROmorphone 1 MG/ML SYRINGE IVP STA ×2 (17:25→21:24)
[2024-10-12] MEDS: KETOROLAC 15 MG/ML VIAL IVP STA (17:25)
[2024-10-12 17:27] LABS: BAND NEUTROPHILS % (MANUAL) 13 %; LYMPHOCYTES # (MANUAL) 1.9 10^3/uL (1.5-3.5); LYMPHOCYTES % (MANUAL) 9 %; METAMYELOCYTES % (MANUAL) 1 %; MONOCYTES # (MANUAL) 0.7 10^3/uL (0.0-1.0); NEUTROPHILS # (MANUAL) 15.7 10^3/uL (1.5-6.6); REACTIVE LYMPHS % (MANUAL) 1 %
[2024-10-12 17:29] LABS: DIFFERENTIAL COMMENT MANUAL DIFFERENTIAL; INR 1.4 (0.8-1.2); PLATELET ESTIMATE, MANUAL NORMAL (130-450,000) (NORMAL); PLATELET MORPHOLOGY NORMAL APPEARANCE (NORMAL); PT - PROTHROMBIN TIME 14.7 secs (9.9-12.6); RBC MORPHOLOGY (MULTIPLE) NORMAL APPEARANCE (NORMAL)
--- NOTE | 2024-10-12 17:50 | CT Report ---
PROCEDURE: CT Abdomen/Pelvis WO INDICATIONS: right upper abd pain since laast night TECHNIQUE: A CT scan of the abdomen and pelvis was performed without the use of intravenous contrast. Images we re recorded and evaluated at appropriate window settings. Reformats: coronal and sagittal. For radiat ion dose reduction, the following was used: automated exposure control, adjustment of mA and/or kV ac cording to patient size. COMPARISON: CT of abdomen and pelvis dated 07/21/2024. FINDINGS: Image quality: Diagnostic. Lower chest: Extensive nodular opacities again seen scattered throughout visualized bilateral lower l sonia mejia. No pleural effusion or pneumothorax. Heart size is enlarged, small amount of pericardial effusion is seen. Liver: Extensive hypodense lesions are seen scattered throughout liver parenchyma consistent with ext ensive liver metastatic disease. Liver is markedly enlarged. Gallbladder: No radiopaque stones or wall thickening. Biliary tree: No intrahepatic or extrahepatic dilation, accounting for age. Spleen: No splenomegaly. Pancreas: No pancreatic ductal dilation. Adrenals: No adrenal nodule. Kidneys and ureters: Nonobstructing stones are seen in mid pole left kidney and measures 6 mm in size . No hydronephrosis. No contour-deforming mass. Stomach, bowel and peritoneum: There is no evidence of bowel obstruction. Fecal stasis throughout the colon is seen. Postsurgical changes are noted in right lower quadrant and left lower quadrant with m ultiple surgical clips. No abscess collection. Small amount of free fluid is seen adjacent to right l obe of liver and in lower pelvis. No peritoneal free air. Lymph nodes: No gross mesenteric lymphadenopathy. Extensive retroperitoneal lymphadenopathy measures up to 1.4 cm in left periaortic space series 2 image 78. Vessels: No infrarenal aortic aneurysm. Reproductive organs: Unremarkable. Bladder: No abnormal bladder wall thickening. No calcified bladder stones. Pelvic lymph nodes: No adenopathy by size criteria. Bones: No aggressive osseous abnormality. Other: No significant ventral or inguinal hernia. IMPRESSION: 1. Extensive liver metastases which is a new finding since 07/21/2024 study. Hepatomegaly. 2. Enlarged retroperitoneal lymph nodes concerning for metastatic disease. 3. No bowel obstruction or abnormal bowel wall thickening. Small amount of abdominal free fluid. No g ross free air. 4. Extensive pulmonary nodules bilaterally consistent with pulmonary metastatic disease. Reviewed by: Max Quigley MD on 10/12/2024 5:48 PM PDT Approved by: Max Quigley MD on 10/12/2024 5:48 PM PDT Station ID: [id number]
[2024-10-12 18:06] LABS: BILIRUBIN,URINE MODERATE (NEGATIVE); GLUCOSE, URINE (UA) NEGATIVE (NEGATIVE); KETONES,URINE (UA) TRACE mg/dL (NEGATIVE); LEUKOCYTE ESTERASE, URINE NEGATIVE (NEGATIVE); NITRITE,URINE NEGATIVE (NEGATIVE); OCCULT BLOOD,URINE NEGATIVE (NEGATIVE); PROTEIN,URINE 30 mg/dL (NEGATIVE); UROBILINOGEN,URINE 4 E.U./dL (NORMAL)
[2024-10-12 18:09] LABS: CLARITY,URINE SL. CLOUDY (CLEAR)
[2024-10-12 18:20] LABS: AMORPHOUS SEDIMENT,UR Few /LPF; BACTERIA,URINE None Seen /HPF (None Seen); CASTS, URINE 6-10 Granular Casts /LPF; RBC,URINE None Seen /HPF (0-5); SQUAMOUS EPITHELIAL CELL,UR MANY Squamous (<= Few); WBC,URINE 0-3 /HPF (0-5)
[2024-10-12] MEDS: PIPERACILLIN/TAZOBACTAM 3.375 GM in SODIUM CHLORIDE 0.9% MINIBAG 100 ML IV STA (19:13)
--- NOTE | 2024-10-12 19:32 | ED Physician Documentation ---
PD HPI ABD PAIN Stated complaint Stated Complaint: WEAKNESS Chief complaint Chief Complaint: General History obtained from History obtained from: Patient and EMS History of Present Illness Timing - onset: How many days ago (some abd pain and chest pain with dyspnea 2 days ago Abd pain has increased significantly today. ) Timing - duration: Days Timing - details: Abrupt onset and Still present Quality: Cramping, Aching, Fullness/distended and Pain; No Indigestion Location: RUQ Radiation: Upper back Improved by: Laying still and Vomiting Worsened by: Moving, Position and Palpation; No Breathing Associated symptoms: Nausea; No Fever (but feeling chills and sweats through the day today.) or Dysuria Similar symptoms before: Has not had sx before Recently seen: Emergency Dept (1 1/2 days ago fordyspnea and had CT chest angio that was negative for PE, pneumonia and PTX. Did not encompass the stomach area. ) Meds/Allgy Home Medications Ambulatory Orders Medication Instructions Recorded Confirmed cimetidine 800 mg tablet 800 mg PO HS 09/26/24 09/26/24 cyclobenzaprine 10 mg tablet 10 mg PO HS 09/26/24 09/26/24 docusate sodium 100 mg capsule 100 mg PO DAILY 09/26/24 09/26/24 gabapentin 300 mg capsule 900 mg PO HS 09/26/24 09/26/24 hydromorphone 2 mg tablet 2 mg PO Q6H PRN pain 09/26/24 09/26/24 ondansetron 8 mg disintegrating 8 mg PO Q8H PRN nausea and vomiting 09/26/24 09/26/24 tablet oxycodone-acetaminophen 5 mg-325 1 tab PO Q6H PRN pain 09/26/24 09/26/24 mg tablet polyethylene glycol 3350 17 17 g PO DAILY 09/26/24 09/26/24 gram/dose oral powder (Miralax) venlafaxine 37.5 mg 37.5 mg PO DAILY 09/26/24 09/26/24 capsule,extended release 24 hr venlafaxine 75 mg capsule,extended 75 mg PO DAILY 09/26/24 09/26/24 release 24 hr docusate sodium 100 mg capsule 100 mg PO DAILY #30 caps 09/27/24 meloxicam 7.5 mg tablet 7.5 mg PO BID #20 tabs 09/27/24 morphine 15 mg tablet,extended 15 mg PO BID #10 tabs 09/27/24 release (MS Contin) oxycodone 10 mg tablet 10 mg PO Q8H PRN pain #10 tabs 09/27/24 Allergies Allergies Allergy/AdvReac Type Severity Reaction Status Date / Time No Known Drug Allergies Allergy Verified 10/12/24 16:18 PFSH Active Problems All Active Problems (Updated 10/12/24 @ 22:01 by Stefano Rothman MD) Acute cholangitis (Acute) Colon cancer metastasized to multiple sites (Acute) Elevated blood pressure reading (Acute) Cancer associated pain (Acute) Abdominal pain (Acute) Medical History Medical History (Updated 10/12/24 @ 22:01 by Stefano Rothman MD) History of colon cancer Surgical History Surgical History History of colectomy Social History Social History Smoking Status: Never smoker Living arrangement: At home Marital Status: Living Condition: With spouse/s.o. Support Person: Yes Relationship: Physical Activity: Walking and Running Do you feel safe in your home environment?: Yes Suffered physical, verbal, emotional, or financial abuse?: No History of Abuse: No Frequency: Occasional Substance Use: cannabis (any form) Are you sexually active?: Yes POLST Patient has POLST: No Exam Constitutional normal general appearance, distress noted (severe) and average body habitus Eyes no scleral icterus Neck/C-Spine supple and no meningeal signs Lymph no lymphadenopathy noted Respiratory normal respiratory effort, auscultation abnormal (diminished breath sound) and (vesicular breath sounds), rales noted (base) and no use of accessory muscles Cardiovascular normal heart rate noted, regular rhythm noted and no edema Gastrointestinal tender to palpation (severe) and (RUQ), tender to percussion and distended (moderate distension more to upper abd.) Genitourinary no CVA tenderness and bladder normal to palpation Back/Pelvis no thoracic spine tenderness and no lumbar spine tenderness Results Vitals Vitals: Vital Signs - 24 hr 10/12/24 16:18 10/12/24 16:54 10/12/24 16:56 Temperature 37.3 C Temperature Source Oral Pulse Rate 140 H 132 H 120 H Respiratory Rate 30 H 24 26 H Blood Pressure 157/135 H 99/68 99/68 O2 Saturation 87 L 93 90 L O2 Source Room air Nasal cannula Nasal cannula If not protocol: Oxygen Flow, liters/minute 5 FiO2 (%) Pain Intensity 9 10/12/24 17:11 10/12/24 17:25 10/12/24 18:00 Temperature Temperature Source Pulse Rate 121 H 111 H Respiratory Rate 24 Blood Pressure 104/70 96/71 O2 Saturation 90 L 94 O2 Source Nasal cannula Room air If not protocol: Oxygen Flow, liters/minute 5 FiO2 (%) 5 Pain Intensity 10 4 10/12/24 18:15 10/12/24 18:30 10/12/24 18:45 Temperature Temperature Source Pulse Rate 107 H 102 H 101 H Respiratory Rate 16 18 18 Blood Pressure 98/69 100/70 104/72 O2 Saturation 95 95 97 O2 Source Nasal cannula Nasal cannula Nasal cannula If not protocol: Oxygen Flow, liters/minute 5 5 5 FiO2 (%) Pain Intensity 10/12/24 19:00 10/12/24 19:14 10/12/24 21:14 Temperature Temperature Source Pulse Rate 97 95 88 Respiratory Rate 20 16 16 Blood Pressure 91/70 106/65 107/74 O2 Saturation 97 96 98 O2 Source Nasal cannula Nasal cannula Room air If not protocol: Oxygen Flow, liters/minute 5 5 FiO2 (%) Pain Intensity 4 10 Oxygen O2 Source Room air Labs Labs: Laboratory Tests 10/12/24 10/12/24 10/12/24 16:49 17:59 20:16 WBC 18.5 H RBC 4.32 Hgb 13.1 Hct 40.8 MCV 94.4 MCH 30.3 MCHC 32.1 RDW 12.4 Plt Count 368 MPV 9.9 Neut # (Auto) Not Reportable Lymph # (Auto) Not Reportable [place] # (Auto) Not Reportable Eos # (Auto) Not Reportable Baso # (Auto) Not Reportable Absolute Nucleated RBC Not Reportable Total Counted 100 Band Neuts % (Manual) 13 H Reactive Lymphs % (Man) 1 Abnorm Lymph % (Manual) 0 Metamyelocytes % 1 H Nucleated RBC % Not Reportable Neutrophils # (Manual) 15.7 H Lymphocytes # (Manual) 1.9 Monocytes # (Manual) 0.7 Eosinophils # (Manual) 0.0 Basophils # (Manual) 0.0 Differential Comment MANUAL DIFFERENTIAL Manual Slide Review Indicated Platelet Estimate NORMAL (130-450,000) Platelet Morphology NORMAL APPEARANCE RBC Morph Micro Appear NORMAL APPEARANCE PT 14.7 H INR 1.4 H APTT 26.8 Sodium 130 L Potassium 4.8 H Chloride 93 L Carbon Dioxide 26 Anion Gap 11.0 BUN 24 H Creatinine 1.2 Estimated GFR (MDRD) 49 L Glucose 158 H Lactic Acid 4.5 H* 2.3 H Calcium 8.5 Total Bilirubin 1.9 H AST 880 H ALT 243 H Alkaline Phosphatase 1371 H Total Protein 6.9 Albumin 3.3 Globulin 3.6 Albumin/Globulin Ratio 0.9 L Lipase 10 L Urine Color DARK YELLOW Urine Clarity SL. CLOUDY Urine pH 5.0 Ur Specific [place] >=1.030 H Urine Protein 30 H Urine Glucose (UA) NEGATIVE Urine Ketones TRACE Urine Occult Blood NEGATIVE Urine Nitrite NEGATIVE Urine Bilirubin MODERATE H Urine Urobilinogen 4 H Ur Leukocyte Esterase NEGATIVE Urine RBC None Seen Urine WBC 0-3 Ur Squamous Epith Cells MANY Squamous H Amorphous Sediment Few Urine Bacteria None Seen Urine Casts 6-10 Granular Casts Ur Microscopic Review INDICATED Urine Culture Comments NOT INDICATED PD Medical Decision Making ED course Complexity details: reviewed results, considered differential (History of metastatic colon cancer to the lung with recent evaluation for dyspnea that showed increased lung lesions but no PEs. Today with abdominal pain significantly. Pain is right upper quadrant.) and d/w patient ED course: The patient with a history of colon cancer with metastases widespread. However not known to be to the liver as of yet. Her oncology team is at [facility] oncology. Seen 1-1/2 days ago for dyspnea and had a chest CT showing lung lesions but no PEs or pneumonia. Today with abdominal pain significantly and abruptly. Lab test done and on the prior visit showed some elevation of LFTs with bilirubin at 1.4 and moderate to mild elevation of the alk phos and AST. Lipase was normal. On exam she is exquisitely tender in the right upper quadrant with percussion and rebound. Concern for obstruction versus acute cholecystitis versus bile duct blockage versus perforation etc. The patient was given IV fluids and pain medicine. Initial labs are showing an elevated white count with a bandemia and a lactic acid level over 4. LFTs are more elevated than yesterday. Lipase is still normal. The patient's pain was reasonably improved with some IV the Dilaudid and Toradol. Kidney function had been okay recently. CT scan is showing multiple lesions through the liver consistent with metastatic disease. This was done noncontrast due to a limited availability of IV contrast. The pancreas appeared normal. Gallbladder was not enlarged and no wall thickening. Bile duct appeared without any stones or dilatation. However given the elevated alk phos and LFTs along with a white count, I wanted to verify the bile duct in order to ultrasound as well. She was given Zosyn IV for concern of cholangitis and sepsis. Talking with the patient on goals of care, she would like treatment with fluids and pain meds and antibiotics and if needed GI consultation for bile duct intervention if that is the issue. However there is can consideration that could be clogged higher in the hepatic tree given multiple metastatic lesions. Patient's preference if not needing specialty care would be hospitalization at our facility or [facility] if needing specialty care as that is where her chemotherapy treatment is. [facility] oncology team. Again she is for gone chemotherapy or radiation given the advanced stage but other treatments are appropriate. Discharge Plan Discharge Condition: Fair Clinical Impression: Acute cholangitis, Colon cancer metastasized to multiple sites Abdominal pain Qualifiers: Abdominal location: right upper quadrant Qualified Code(s): R10.11 - Right upper quadrant pain Prescriptions: No Action hydromorphone 2 mg tablet 2 mg PO Q6H PRN (Reason: pain) Patient Comments: TAKE 1 TABLET BY MOUTH EVERY 6 HOURS NEEDED FOR PAIN oxycodone-acetaminophen 5-325 mg tablet 1 tab PO Q6H PRN (Reason: pain) Patient Comments: PLEASE SEE ATTACHED FOR DETAILED DIRECTIONS ondansetron 8 mg tablet,disintegrating 8 mg PO Q8H PRN (Reason: nausea and vomiting) venlafaxine 75 mg capsule,extended release 24hr 75 mg PO DAILY Patient Comments: 75mg and 37.5 mg tablet taken daily venlafaxine 37.5 mg capsule,extended release 24hr 37.5 mg PO DAILY Patient Comments: 75mg and 37.5 mg tablet taken daily gabapentin 300 mg capsule 900 mg PO HS docusate sodium 100 mg capsule 100 mg PO DAILY Patient Comments: TAKE 1 CAPSULE BY MOUTH EVERY DAY polyethylene glycol 3350 [Miralax] 17 gram/dose powder 17 g PO DAILY cyclobenzaprine 10 mg tablet 10 mg PO HS cimetidine 800 mg tablet 800 mg PO HS morphine [MS Contin] 15 mg tablet extended release 15 mg PO BID Qty: 10 0RF oxycodone 10 mg tablet 10 mg PO Q8H PRN (Reason: pain) Qty: 10 0RF meloxicam 7.5 mg tablet 7.5 mg PO BID Qty: 20 0RF docusate sodium 100 mg capsule 100 mg PO DAILY Qty: 30 0RF Print Language: Faroese Stand Alone Forms: PCP List
[2024-10-12 20:38] LABS: LACTIC ACID, VENOUS 2.3 mmol/L (0.5-2.2)
--- NOTE | 2024-10-12 21:49 | Ultrasound Report ---
PROCEDURE: US Abdomen Limited INDICATIONS: RUQ pain and elevated LFTs. CT normal biliary tree TECHNIQUE: Real-time focused scanning was performed of the abdomen, with image documentation. COMPARISONS: None. FINDINGS: Liver: Mild liver enlargement measuring 21 cm in length. Coarse, heterogeneous hepatic echotexture. There is a known mass in the left hepatic lobe measuring 3.6 cm. Appropriate direction of flow in the portal vein. Trace perihepatic fluid. Gallbladder: Gallbladder wall thickening up to 7.4 mm. There is trace pericholecystic fluid. No sonog raphic Oates's sign or stones. There is dependent sludge. Biliary ducts: Intrahepatic bile ducts are non-dilated. Extrahepatic bile duct caliber measures 4.9 mm. Normal is 6-7 mm or less in diameter, or 10 mm or less post-cholecystectomy. Pancreas: Visualized portions of the pancreas are sonographically normal. Right kidney: Normal in size and echotexture. Right kidney measures 11.6 cm long. No hydronephrosis or nephrolithiasis. No solid masses. No complex renal cystic lesions which require follow-up. IVC: Intrahepatic inferior vena cava is patent. IMPRESSION: Heterogeneous enlarged liver with known metastatic disease. Trace fluid. Gallbladder wall thickening and pericholecystic fluid is nonspecific in the setting of liver disease and systemic disease present. Preliminary results given by the painting department supervisor to the ordering provider immediately following the study . Reviewed by: Justina Smith MD on 10/12/2024 9:48 PM PDT Approved by: Justina Smith MD on 10/12/2024 9:48 PM PDT Station ID: [id number]
[2024-10-12 23:48] LABS: LACTIC ACID, VENOUS 2.5 mmol/L (0.5-2.2)
[2024-10-13] MEDS: SODIUM CHLORIDE 0.9% 1,000 ML IV SCH (03:08)
--- NOTE | 2024-10-13 05:12 | ED Physician Documentation ---
ED Addendum Addendum Addendum: Patient received a signout from outgoing physician, please see their documentation for further detail. Patient 43-year-old female with known history diffuse metastatic colon cancer. Signed out to me with ultrasonography pending. Ultrasonography with diffuse metastatic disease as well as some concern per the tech for possible obstructing mass though her common bile duct was not notably enlarged. Discussed with gastroenterology [facility] who do recommend MRCP Unfortunately no beds in hospitals with gastroenterology available at the [facility] at this time. Waitlisted for bed at [facility]. MRCP is ordered. A.m. labs somewhat improved. Will be signing out to the oncoming physician, please see their documentation for further detail. Discharge Plan Discharge Condition: Fair Clinical Impression: Acute cholangitis, Colon cancer metastasized to multiple sites Abdominal pain Qualifiers: Abdominal location: right upper quadrant Qualified Code(s): R10.11 - Right upper quadrant pain Prescriptions: No Action hydromorphone 2 mg tablet 2 mg PO Q6H PRN (Reason: pain) Patient Comments: TAKE 1 TABLET BY MOUTH EVERY 6 HOURS NEEDED FOR PAIN oxycodone-acetaminophen 5-325 mg tablet 1 tab PO Q6H PRN (Reason: pain) Patient Comments: PLEASE SEE ATTACHED FOR DETAILED DIRECTIONS ondansetron 8 mg tablet,disintegrating 8 mg PO Q8H PRN (Reason: nausea and vomiting) venlafaxine 75 mg capsule,extended release 24hr 75 mg PO DAILY Patient Comments: 75mg and 37.5 mg tablet taken daily venlafaxine 37.5 mg capsule,extended release 24hr 37.5 mg PO DAILY Patient Comments: 75mg and 37.5 mg tablet taken daily gabapentin 300 mg capsule 900 mg PO HS docusate sodium 100 mg capsule 100 mg PO DAILY Patient Comments: TAKE 1 CAPSULE BY MOUTH EVERY DAY polyethylene glycol 3350 [Miralax] 17 gram/dose powder 17 g PO DAILY cyclobenzaprine 10 mg tablet 10 mg PO HS cimetidine 800 mg tablet 800 mg PO HS morphine [MS Contin] 15 mg tablet extended release 15 mg PO BID Qty: 10 0RF oxycodone 10 mg tablet 10 mg PO Q8H PRN (Reason: pain) Qty: 10 0RF meloxicam 7.5 mg tablet 7.5 mg PO BID Qty: 20 0RF docusate sodium 100 mg capsule 100 mg PO DAILY Qty: 30 0RF Print Language: Luxembourgish Stand Alone Forms: PCP List
[2024-10-13 05:40] LABS: BASOPHILS # (AUTO) 0.1 10^3/uL (0.0-0.1); BASOPHILS % (AUTO) 0.4 %; EOSINOPHILS # (AUTO) 0.1 10^3/uL (0.0-0.7); EOSINOPHILS % (AUTO) 0.6 %; HCT - HEMATOCRIT 35.4 % (37.0-47.0); HGB - HEMOGLOBIN 11.2 g/dL (12.0-16.0); LYMPHOCYTES # (AUTO) 0.9 10^3/uL (1.5-3.5); LYMPHOCYTES % (AUTO) 7.9 %; MEAN CORPUSCULAR HEMOGLOBIN 30.3 pg (27.0-31.0); MEAN CORPUSCULAR HGB CONC 31.6 g/dL (32.0-36.0); MEAN CORPUSCULAR VOLUME 95.7 fL (81.0-99.0); MEAN PLATELET VOLUME 10.1 fL (7.9-10.8); MONOCYTES # (AUTO) 1.2 10^3/uL (0.0-1.0); MONOCYTES % (AUTO) 10.4 %; NEUTROPHILS % (AUTO) 80.2 %; PLT - PLATELET COUNT 269 10^3/uL (130-450); RED CELL DISTRIBUTION WIDTH 12.7 % (12.0-15.0); WHITE BLOOD COUNT 11.2 x10^3/uL (4.8-10.8)
[2024-10-13 05:46] LABS: INR 1.5 (0.8-1.2)
[2024-10-13 05:51] LABS: ALBUMIN/GLOBULIN RATIO 1.1 (1.0-2.2); BILIRUBIN,TOTAL 1.7 mg/dL (0.2-1.0); CALCIUM 7.6 mg/dL (8.5-10.3); CREATININE 1.1 mg/dL (0.6-1.3); POTASSIUM 5.2 mmol/L (3.5-4.5); TOTAL PROTEIN 5.7 g/dL (6.4-8.9)
[2024-10-13] MEDS: PIPERACILLIN/TAZOBACTAM 3.375 GM in SODIUM CHLORIDE 0.9% MINIBAG 100 ML IV STA (07:19)
[2024-10-13] MEDS: HYDROmorphone 1 MG/ML SYRINGE IVP PRN (07:22)
[2024-10-13] MEDS: KETOROLAC 15 MG/ML VIAL IVP STA (08:52)
[2024-10-13] MEDS: SODIUM CHLORIDE 0.9% 1,000 ML IV STA (08:54)
--- NOTE | 2024-10-13 12:43 | MRI Report ---
PROCEDURE: MRI MRCP W/WO INDICATIONS: Colon cancer, hepatic metastasis, concern for bili CONTRAST: 15ML CLARISCAN TECHNIQUE: Coronal ultra fast SE through the abdomen, axial 2-D spoiled GE in- and [id number], and breath-hold T2 FSE with fat saturation through the biliary system and pancreas. Oblique coronal and axial thin- slice ultra fast SE, radial thick-slab ultra fast SE centered on the extrahepatic bile ducts. COMPARISON: 10/12/2024, 07/21/1999 FINDINGS: Image quality: Excellent. Gallbladder: No stones or wall thickening. Biliary tree: No intrahepatic or extrahepatic dilation. No filling defects within the common bile maría t. Pancreas: No pancreatic ductal dilation. Lung bases and heart: Extensive pulmonary metastases. Liver: Extensive liver metastases. Target mass measures 2.9 cm segment 4 (series 15, image 37). Spleen: No splenomegaly. Adrenals: No adrenal nodule. Kidneys and ureters: No hydronephrosis. No renal cystic lesion which requires follow up. No solid mas s. Bowel and peritoneum: No bowel distension. No pathologic free fluid. Lymph nodes: Retroperitoneal adenopathy. Target lesion is in the upper periaortic space measuring 3.3 cm short axis, with growth from prior. Vessels: No infrarenal aortic aneurysm. Bones: No aggressive osseous abnormality. Other: No significant ventral hernia. IMPRESSION: No biliary obstruction. Extensive liver metastases, new from 07/21/2024. Growing retroperitoneal adenopathy and extensive pulmo nary metastases. Reviewed by: Oliverio Celis MD on 10/13/2024 12:41 PM PDT Approved by: Oliverio Celis MD on 10/13/2024 12:41 PM PDT Station ID: [id number]
--- NOTE | 2024-10-13 12:47 | PHARMACY PROGRESS NOTE ---
Best Possible Medication History Admit Date and Time: Home Medications Medication Instructions Recorded Confirmed Type cimetidine 800 mg tablet 800 mg PO HS 09/26/24 10/13/24 History cyclobenzaprine 10 mg tablet 10 mg PO HS 09/26/24 10/13/24 History docusate sodium 100 mg capsule 100 mg PO DAILY 09/26/24 10/13/24 History gabapentin 300 mg capsule 900 mg PO HS 09/26/24 10/13/24 History ondansetron 8 mg disintegrating 8 mg PO Q8H PRN nausea and vomiting 09/26/24 10/13/24 History tablet polyethylene glycol 3350 17 17 g PO DAILY 09/26/24 10/13/24 History gram/dose oral powder (Miralax) venlafaxine 37.5 mg 37.5 mg PO DAILY 09/26/24 10/13/24 History capsule,extended release 24 hr venlafaxine 75 mg capsule,extended 75 mg PO DAILY 09/26/24 10/13/24 History release 24 hr meloxicam 7.5 mg tablet 7.5 mg PO BID #20 tabs 09/27/24 10/13/24 Rx oxycodone 10 mg tablet 10 mg PO Q8H PRN pain #10 tabs 09/27/24 10/13/24 Rx morphine 15 mg tablet,extended 30 mg PO BID 10/13/24 10/13/24 History release (MS Contin) trazodone 50 mg tablet 50 mg PO HS PRN insomnia 10/13/24 10/13/24 History Processed by: Pharmacy Medications reviewed in ED?: Yes Medication History completed: Yes Patient Interview: Completed Secondary Source(s): Insurance records [facility] Statement: As the person ultimately responsible for medication therapy, providers are able to order a medication from an existing home medication list in [facility] via the "Reconcile Routine" prior to Confirmation of that medication by support group manager. Such practice is discouraged except when the physician, in their clinical judgment, deems that a medical need exists for a medication without regard to previous use.
[2024-10-13] MEDS: PIPERACILLIN/TAZOBACTAM 3.375 GM in SODIUM CHLORIDE 0.9% MINIBAG 100 ML IV SCH (13:32)
[2024-10-13] MEDS ORDERED: GADOTERATE MEGLUMINE 10 MMOL/20 ML VIAL ONE (13:57)
[2024-10-13] MEDS: DEXAMETHASONE 10 MG/ML VIAL IVP STA (14:40)
--- NOTE | 2024-10-13 15:49 | HISTORY & PHYSICAL EXAMINATION ---
Chief Complaint Chief Complaint Chief Complaint: Abdominal pain History of Present Illness Admitted From Admitted From:: Home with History Obtained From History obtained from: Patient interview History of Present Illness HPI Comment/Other: 43-year-old female with history significant for colon cancer with surgical management Who had received a clear report last June presents with abdominal pain. In the ER, she was noted to have AST 880, ALT 243, alkaline phosphatase 1371. She also reported some shortness of breath related to pain. She underwent CTA chest, CT abdomen/pelvis, abdomen ultrasound which showed metastatic disease throughout her lungs, lymph nodes, liver,. She underwent MRCP which showed no biliary obstruction but did show extensive liver mets, new from July of this year. GI specialist was contacted outside facility, who states there is no need for transfer, that she can be medically managed with supportive care at this time. Hospitalist was contacted for admission for severe acute pain and for acute liver failure secondary to metastatic disease Meds/Allgy Home Medications Ambulatory Orders Medication Instructions Recorded Confirmed cimetidine 800 mg tablet 800 mg PO HS 09/26/24 10/13/24 cyclobenzaprine 10 mg tablet 10 mg PO HS 09/26/24 10/13/24 docusate sodium 100 mg capsule 100 mg PO DAILY 09/26/24 10/13/24 gabapentin 300 mg capsule 900 mg PO HS 09/26/24 10/13/24 polyethylene glycol 3350 17 17 g PO DAILY 09/26/24 10/13/24 gram/dose oral powder (Miralax) meloxicam 7.5 mg tablet 7.5 mg PO BID #20 tabs 09/27/24 10/13/24 oxycodone 10 mg tablet 10 mg PO Q8H PRN pain #10 tabs 09/27/24 10/13/24 morphine 15 mg tablet,extended 30 mg PO BID 10/13/24 10/13/24 release (MS Contin) Allergies Allergies Allergy/AdvReac Type Severity Reaction Status Date / Time No Known Drug Allergies Allergy Verified 10/12/24 16:18 PFSH Active Problems All Active Problems (Updated 10/13/24 @ 14:33 by Stefano Rothman MD) Inflammatory liver disease, unspecified (Acute) Colon cancer metastasized to multiple sites (Acute) Elevated blood pressure reading (Acute) Cancer associated pain (Acute) Abdominal pain (Acute) Medical History Medical History (Updated 10/13/24 @ 14:33 by Stefano Rothman MD) History of colon cancer Surgical History Surgical History History of colectomy Social History Social History Smoking Status: Never smoker Living arrangement: At home Marital Status: Living Condition: With spouse/s.o. Support Person: Yes Relationship: Physical Activity: Walking and Running Do you feel safe in your home environment?: Yes Suffered physical, verbal, emotional, or financial abuse?: No History of Abuse: No Frequency: Occasional Substance Use: cannabis (any form) Are you sexually active?: Yes POLST Patient has POLST: No Review of Systems Status of ROS: 10 or more systems reviewed and unremarkable except as noted in history and below Constitutional Denies: Fever or Chills Cardiovascular Reports: chest pain (Musculoskeletal pain) and shortness of breath with exertion (Breathing restricted due to pain); Denies: Irregular heart rate, palpitations or edema Respiratory Reports: Shortness of breath (Breathing restricted due to pain) Gastrointestinal Reports: Abdominal pain; Denies: Nausea or Vomiting Genitourinary Denies: Painful urination Exam Exam Vital Signs: Vital Signs x48h Pulse Resp BP Pulse Ox O2 Flow Rate 10/13/24 16:00 92 18 106/82 96 3 10/13/24 15:00 92 16 104/63 96 3 10/13/24 14:00 80 20 111/75 94 3 10/13/24 13:00 87 20 95/66 95 3 10/13/24 12:27 3 10/13/24 12:25 100 20 98/76 96 3 10/13/24 11:00 97 20 95/64 96 3 10/13/24 10:23 112 H 25 H 95/64 97 4 Constitutional normal general appearance and no apparent distress HENMT normocephalic Eyes PERRL Neck/C-Spine visual inspection normal Lymph no lymphadenopathy noted Chest inspection of chest normal Respiratory breath sounds equal bilaterally and normal respiratory effort Cardiovascular normal heart rate noted and peripheral pulses 2+ throughout Gastrointestinal Tender to even light touch in upper abdomen Extremities normal to inspection Neurology GCS 15 Psychiatry oriented x3 Skin skin color normal Conclusion/Plan Problem List (1) Inflammatory liver disease, unspecified: Plan: MRCP with no biliary obstruction Case was discussed with GI specialist, they report no need for surgical intervention or transfer They recommended course of steroid and IV fluid CMP in a.m. LR at 100 Decadron 4 mg p.o. daily Received 10 mg Decadron IV in the ER (2) Cancer associated pain: Plan: I have ordered Dilaudid 1 mg every 2 hours as needed for pain Her need for pain medication will likely decrease when her steroid takes effect in her acute liver disease resolves (3) Colon cancer metastasized to multiple sites: Plan: She tells me that her colon cancer was gone as of June. She sees a oncologist in [facility]. I discussed her poor prognosis given mets to multiple sites. She continues to decline hospice care. She is open to palliative care, Palliative care will be consulted in the morning Plan Admit to inpatient Full code Her is her surrogate decision maker Lab Results Lab results reviewed: Yes 10/13/24 05:33 10/13/24 05:33 Core Measures Anticipated LOS I expect patient to be DC'd or transferred within 96 hours.: Yes DVT/VTE - Prophylaxis VTE/DVT Device ordered at admit?: Yes
--- OUTSIDE RECORDS SUMMARY | 2024-10-13 15:59 | EXTERNAL MEDICAL SUMMARY RPT | Continuity of Care Document ---
Author Organization [facility] Address [address] [place] [id number] Phone Care Team Providers Care Customer Response Representative Name Role Phone Kassidy Humphries Unavailable Unavailable Medications date description facility 2024-09-09 00:00 [facility] Problems date description facility 2024-07-21 19:19 Vomiting, unspecified [facility] 2024-09-09 00:00 Abdominal pain [facility] 2024-09-27 10:35 Malignant neoplasm of colon, un specified [facility] 2024-09-27 10:35 Neoplasm related pain (acute) ( chronic) [facility] 2024-09-29 10:33 Unspecified abdominal pain [facility] 2024-10-01 13:53 Malignant neoplasm of colon, un specified [facility] 2024-10-01 13:53 Neoplasm related pain (acute) ( chronic) [facility] 2024-10-01 13:53 Lower abdominal pain, unspecifi ed [facility] 2024-10-01 13:53 Left lower quadrant pain [facility] 2024-10-01 13:53 Periumbilical pain [facility] 2024-10-12 12:39 Neoplasm related pain (acute) ( chronic) [facility] 2024-10-12 12:39 Constipation, unspecified id[facility] 2024-10-12 12:39 Shortness of breath [facility] 2024-10-12 16:18 Neoplasm related pain (acute) ( chronic) [facility] 2024-10-12 16:18 Constipation, unspecified [facility] 2024-10-12 16:18 Shortness of breath [facility] Results/Labs test date facility value unit notes Result panel 1 [facility]ASE [facility]24-07-21 [facility] < 10 u/l As of January 2023 testing method has changed, this may include reference ranges. NUCLEATED RED BLOOD CELLS AUTO 2024-07-21 14:12 [facility] 0.0 /100wbc (missing) BASOPHILS # (AUTO) 2024-07-21 14:12 [facility] 0.0 10 3/ul (missing) NRBC ABSOLUTE COUNT (AUTO) 2024-07-21 14:12 [facility] 0.00 x10 3/ul (missing) EOSINOPHILS # (AUTO) 2024-07-21 14:12 [facility] 0.4 10 3/ul (missing) BILIRUBIN,TOTAL 2024-07-21 14:12 [facility] 0.6 mg /dl As of January 2023 testing method has changed, this may include reference ranges. CREATININE 2024-07-21 14:12 [facility] 0.7 mg/dl As of January 2023 testing method has changed, this may include reference ranges. MONOCYTES # (AUTO) 2024-07-21 14:12 [facility] 0.9 10 3/ul (missing) ALBUMIN/GLOBULIN RATIO 2024-07-21 14:12 [facility] 1.9 (missing) (missing) CHLORIDE 2024-07-21 14:12 [facility] 103 mmol/l As of January 2023 testing method has changed, this may include reference ranges. ANION GAP 2024-07-21 14:12 [facility] 11.0 (missing ) (missing) WHITE BLOOD COUNT 2024-07-21 14:12 [facility] 11.1 x10 3/ul (missing) GLUCOSE 2024-07-21 14:12 [facility] 121 mg/dl As of January 2023 testing method has changed, this may include reference ranges. RED CELL DISTRIBUTION WIDTH 2024-07-21 14:12 [facility] 13.5 % (missing) BUN - BLOOD UREA NITROGEN 2024-07-21 14:12 [facility] 14 mg/dl As of Jan testing method has changed, this may include reference ranges. SODIUM 2024-07-21 14:12 [facility] 140 mmol/l As of January 2023 testing method has changed, this may include reference ranges. HGB - HEMOGLOBIN 2024-07-21 14:12 [facility] 15.2 g /dl (missing) LYMPHOCYTES # (AUTO) 2024-07-21 14:12 [facility] 2.0 10 3/ul (missing) GLOBULIN 2024-07-21 14:12 [facility] 2.6 g/dl (missing) AST ASPARTATE AMINOTRANSFERASE 2024-07-21 14:12 [facility] 20 iu/l As of January 2023 testing method has changed, this may include reference ranges. ALT ALANINE AMINOTRANSFERASE 2024-07-21 14:12 [facility] 24 iu/l As of January 2023 testing method has changed, this may include reference ranges. CARBON DIOXIDE - CO2 2024-07-21 14:12 [facility] 26 mmol/l As of January 2023 testing method has changed, this may include reference ranges. PLT - PLATELET COUNT 2024-07-21 14:12 [facility] [employer] [facility] 305 10 3/ul (missing) MEAN CORPUSCULAR HEMOGLOBIN 2024-07-21 14:12 [facility] 31.3 pg (missing) MEAN CORPUSCULAR HGB CONC 2024-07-21 14:12 [facility] 33.4 g/dl (missing) POTASSIUM 2024-07-21 14:12 [facility] 4.6 mmol/l As of January 2023 testing method has changed, this may include reference ranges. RED BLOOD COUNT 2024-07-21 14:12 [facility] 4.86 10 6/ul (missing) HCT - HEMATOCRIT 2024-07-21 14:12 [facility] 45.5 % (missing) ALBUMIN 2024-07-21 14:12 [facility] 5.0 g/dl As of January 2023 testing method has changed, this may include reference ranges. TOTAL PROTEIN 2024-07-21 14:12 [facility] 7.6 g/dl As of January 2023 testing method has changed, this may include reference ranges. NEUTROPHILS # (AUTO) 2024-07-21 14:12 [facility] 7.8 10 3/ul (missing) ALKALINE PHOSPHATASE 2024-07-21 14:12 [facility] 79 iu/l As of January 2023 testing method has changed, this may include reference ranges. MEAN PLATELET VOLUME 2024-07-21 14:12 [facility] 9.7 fl (missing) CALCIUM 2024-07-21 14:12 [facility] 9.8 mg/dl As of January 2023 testing method has changed, this may include reference ranges. GFR - MDRD 2024-07-21 14:12 [facility] 90 (molly ba) Social History date description facility 2024-09-08 00:00 Never smoked tobacco (finding) [facility] Vital Signs date measurement value units [...]
[2024-10-13] MEDS ORDERED: ONDANSETRON ODT 4 MG TABLET TL PRN (16:28)
[2024-10-13] MEDS ORDERED: ONDANSETRON 4 MG/2 ML VIAL IVP PRN (16:28)
[2024-10-13] MEDS ORDERED: PROCHLORPERAZINE 10 MG/2 ML VIAL IVP PRN (16:28)
[2024-10-13] MEDS ORDERED: SODIUM CHLORIDE FLUSH 0.9% 10 ML SYRINGE IVP PRN (16:28)
[2024-10-13] MEDS: HYDROmorphone 0.5 MG/0.5 ML SYRINGE IVP PRN (16:37)
[2024-10-13] MEDS: LACTATED RINGERS 1,000 ML IV SCH (16:38)
[2024-10-13] MEDS: SODIUM CHLORIDE FLUSH 0.9% 10 ML SYRINGE IVP SCH (16:38)
[2024-10-13] MEDS: GADOTERATE MEGLUMINE 10 MMOL/20 ML VIAL IVP ONE (17:48)
[2024-10-14 04:42] LABS: BASOPHILS # (AUTO) 0.1 10^3/uL (0.0-0.1); BASOPHILS % (AUTO) 0.5 %; EOSINOPHILS # (AUTO) 0.1 10^3/uL (0.0-0.7); EOSINOPHILS % (AUTO) 0.8 %; HCT - HEMATOCRIT 36.5 % (37.0-47.0); HGB - HEMOGLOBIN 11.6 g/dL (12.0-16.0); LYMPHOCYTES # (AUTO) 0.7 10^3/uL (1.5-3.5); LYMPHOCYTES % (AUTO) 4.8 %; MEAN CORPUSCULAR HGB CONC 31.8 g/dL (32.0-36.0); MEAN CORPUSCULAR VOLUME 94.3 fL (81.0-99.0); MEAN PLATELET VOLUME 10.6 fL (7.9-10.8); MONOCYTES # (AUTO) 1.3 10^3/uL (0.0-1.0); MONOCYTES % (AUTO) 9.3 %; NEUTROPHILS # (AUTO) 12.1 10^3/uL (1.5-6.6); NEUTROPHILS % (AUTO) 84.1 %; PLT - PLATELET COUNT 295 10^3/uL (130-450); RED BLOOD COUNT 3.87 10^6/uL (4.20-5.40); WHITE BLOOD COUNT 14.4 x10^3/uL (4.8-10.8)
[2024-10-14 04:57] LABS: ALBUMIN 2.6 g/dL (3.2-5.5); BILIRUBIN,TOTAL 1.6 mg/dL (0.2-1.0); CALCIUM 7.8 mg/dL (8.5-10.3); CREATININE 0.7 mg/dL (0.6-1.3); TOTAL PROTEIN 5.3 g/dL (6.4-8.9)
[2024-10-14] MEDS: dexAMETHasone 4 MG TABLET PO SCH (07:59)
[2024-10-14] MEDS: PIPERACILLIN/TAZOBACTAM 3.375 GM in SODIUM CHLORIDE 0.9% MINIBAG 100 ML IV SCH ×2 (09:59→14:35)
[2024-10-14] MEDS ORDERED: oxyCODONE 5 MG TABLET PO PRN (11:04)
[2024-10-14] MEDS: HYDROmorphone 0.5 MG/0.5 ML SYRINGE IVP SCH (11:50)
--- NOTE | 2024-10-14 15:20 | PROVIDER PROGRESS NOTE ---
Subjective Prog Note Date Prog Note Date: 10/14/24 Subjective Subjective: Lots of abdominal pain, decreased appetite. Was able to have a BM today Current Medications Current Medications Current Medications: Current Medications Generic Name Dose Route Start Last Admin Trade Name Kiko PRN Reason Stop Dose Admin Dexamethasone 4 mg 10/14/24 08:00 10/14/24 07:59 Dexamethasone 4 Mg Tablet PO 4 mg DAILYWM TAMIKA Administration Hydromorphone HCl 1.5 mg 10/14/24 12:00 10/14/24 14:41 Hydromorphone 0.5 Mg/0.5 Ml Syringe IVP Not Given Q2H TAMIKA Lactated Ringer's 1,000 mls @ 100 mls/hr 10/13/24 16:28 10/14/24 14:40 Lr IV 0 mls/hr .Q10H TAMIKA Infusion Piperacillin Sod/Tazobactam 100 mls @ 25 mls/hr 10/14/24 15:00 10/14/24 14:35 Sod 3.375 gm/ Sodium Chloride IV 25 mls/hr Q8H TAMIKA Administration Ibuprofen 400 mg 10/13/24 16:28 Ibuprofen 400 Mg Tablet PO Q4HR PRN Pain 1 to 4 Ondansetron HCl 4 mg 10/13/24 16:28 Ondansetron Odt 4 Mg Tablet TL Q6HR PRN Nausea / Vomiting Ondansetron HCl 4 mg 10/13/24 16:28 Ondansetron 4 Mg/2 Ml Vial IVP Q6HR PRN Nausea / Vomiting Oxycodone HCl 5 mg 10/14/24 11:04 Oxycodone 5 Mg Tablet PO Q4HR PRN Moderate Pain (Level 4-6) Prochlorperazine Edisylate 10 mg 10/13/24 16:28 Prochlorperazine 10 Mg/2 Ml Vial IVP Q6HR PRN Nausea / Vomiting Sodium Chloride 10 ml 10/13/24 16:28 Sodium Chloride Flush 0.9% 10 Ml Syringe IVP PRN PRN NEEDED PER PROVIDER ORDERS Sodium Chloride 10 ml 10/13/24 17:00 10/14/24 10:00 Sodium Chloride Flush 0.9% 10 Ml Syringe IVP Not Given 0100,0900,1700 [facility] Objective Vital Signs/Intake & Output Reviewed Vital Signs: Yes Vital Signs: Vital Signs x48h Temp Pulse Resp BP Pulse Ox O2 Flow Rate 10/14/24 13:25 36.7 C 86 18 132/86 H 93 4 10/14/24 08:20 4 10/14/24 08:19 36.7 C 90 20 123/84 94 4 Intake & Output: Intake & Output 10/11/24 10/12/24 10/13/24 10/14/24 23:59 23:59 23:59 23:59 Intake Total 1100 / 1099 4073 / 4073 3583 / 3583 Balance 1100 1099 4073 / 4073 3583 / 3583 Weight (kg) 72 kg Objective General Appearance: positive Moderate distress (tearful in pain 2 out of 3 times I was at bedside today) Eyes Bilateral: positive PERRL ENT: positive No signs of dehydration Neck: positive Nml inspection Respiratory: positive No respiratory distress and Breath sounds nml Cardiovascular: positive Regular rate & rhythm Abdomen: positive No distention Skin: positive Color nml Extremities: positive Non-tender and No pedal edema Neurologic/Psychiatric: positive Oriented x3 Lab Results 10/14/24 04:03 10/14/24 04:03 Other Labs: Lab Results x24hrs 10/14/24 Range/Units 04:03 WBC 14.4 H (4.8-10.8) x10^3/uL RBC 3.87 L (4.20-5.40) 10^6/uL Hgb 11.6 L (12.0-16.0) g/dL Hct 36.5 L (37.0-47.0) % MCV 94.3 (81.0-99.0) fL MCH 30.0 (27.0-31.0) pg MCHC 31.8 L (32.0-36.0) g/dL RDW 13.0 (12.0-15.0) % Plt Count 295 (130-450) 10^3/uL MPV 10.6 (7.9-10.8) fL Neut # (Auto) 12.1 H (1.5-6.6) 10^3/uL Lymph # (Auto) 0.7 L (1.5-3.5) 10^3/uL [place] # (Auto) 1.3 H (0.0-1.0) 10^3/uL Eos # (Auto) 0.1 (0.0-0.7) 10^3/uL Baso # (Auto) 0.1 (0.0-0.1) 10^3/uL Absolute Nucleated RBC 0.00 x10^3/uL Nucleated RBC % 0.0 /100WBC Sodium 136 (135-145) mmol/L Potassium 5.0 H (3.5-4.5) mmol/L Chloride 105 (101-111) mmol/L Carbon Dioxide 25 (21-32) mmol/L Anion Gap 6.0 (6-13) BUN 17 (6-20) mg/dL Creatinine 0.7 (0.6-1.3) mg/dL Estimated GFR (MDRD) 90 (>89) Glucose 128 H (74-104) mg/dL Calcium 7.8 L (8.5-10.3) mg/dL Total Bilirubin 1.6 H (0.2-1.0) mg/dL AST 149 H (10-42) IU/L ALT 103 H (10-60) IU/L Alkaline Phosphatase 843 H (42-121) IU/L Total Protein 5.3 L (6.4-8.9) g/dL Albumin 2.6 L (3.2-5.5) g/dL Globulin 2.7 (2.1-4.2) g/dL Albumin/Globulin Ratio 1.0 (1.0-2.2) Assessment/Plan Problem List (1) Colon cancer metastasized to multiple sites: Impression: Uncontrolled abdominal pain requiring parenteral narcotics. This morning I increased her hydromorphone dosage from 1 mg to 1.5 mg IV. Additionally, I scheduled this medication every 2 hours. It will be held for a RASS score of - 1, otherwise should be given. 1 dose was held midday today and patient wound up in a great deal of pain. It was at that point that I changed the hold parameters on this medication, to reflect RASS scoring. Review of PDMP shows that this patient was on morphine sulfate ER 30 mg twice daily as well as oxycodone for breakthrough pain at home. She gives a history of her colon cancer being gone as of several months ago. This does not seem consistent with other medical records. Discussed with JAYJAY Eugene of palliative care. MARCUS Aviles has consulted on this patient has been able to obtain some records regarding her cancer care at [facility]. It seems that she has refused systemic chemotherapy and has pursued homeopathic cures for her cancer. Her disease has progressed. Pt and family open to the idea of palliative care at this time, and possibly would consider hospice. Patient is most concerned about avoidance of pain, as well as concerns for her family's well being. (2) Inflammatory liver disease, unspecified: Impression: Sharp increase in her transaminases over the last month or so, possibly related to supplement use. She has since stopped the supplements and transaminases seem to be trending downward. I will continue to follow her liver function studies. (3) Cancer associated pain: Impression: I have resumed her long-acting morphine. I have instituted oral oxycodone. At this point her pain is so severe that we are treating with parenteral Dilaudid. As the long-acting morphine kicks in hopefully can transition over to oxycodone and off of parenteral Dilaudid. This will be her goal in the next 24 to 36 hours so that we can transition her home with her family. I have spent 55 minutes in the care of this patient today. This includes time [id number], review and ordering of diagnostic imaging and laboratory studies and consultation with other providers. Monitoring the patient's signs symptoms, evaluation of medication effectiveness and patient's response to treatment.
--- NOTE | 2024-10-14 17:02 | Palliative Care ---
CC HPI Chief Complaint Chief Complaint: abdominal pain; met colon cancer with extensive mets; grief and loss History Obtained From Records Reviewed: oncology note 09/28; ED records; hospital records History obtained from: patient History of Present Illness HPI: This is a 43-year-old who originally presented with abdominal pain in September 2011, initially felt to represent diverticulitis, and when her pain did not improve with antibiotics she eventually presented to ED with imaging suggestive of a colonic mass. She did have a colonoscopy 12/19/2023 demonstrated mass in descending colon pathology returning of moderately differentiated colonic adenocarcinoma. The patient underwent a robotic assisted laparoscopic sigmoid colectomy with splenic flexure takedown on 01/15/2024 but findings int raoperatively showed a tubular involved omentum, with further evidence of metastatic disease. She also at that time presented with a lung nodule and soft tissue densities in anterior left and right abdomen highly suspicious for residual metastatic disease.Patient has declined adjuvant treatment, as well as when she presented with multifocal disease progression of a PET/CT 04/28/2024. When asked patient by her understanding of her diseases, She did understand chemotherapy was not going to cure her, and she did not want to be sick. She wanted to try her alternatives which included supplemental treatments and diet changes, and was scheduled to do hyperbaric. She has had multiple trips to the ED recently with progressive abdominal pain, she was started on time-released morphine 15 mg twice daily in the ED, and then progressed to 30 twice daily when she saw her oncologist 09/28. She did not sleep quite, but also noted from her ED visits, had worsening liver enzymes, when she heard this she had stopped supplements and they actually are improving though remain elevated. She reports she feels with the morphine, she was sleeping all the time, and was unable to stay awake to stay on top of things, including eating and drinking, and has had very little over the last several days, with her worsening stomach pain, vomiting, and poor intake. Patient's goals are to continue to pursue her alternatives, she reports "everybody is getting up on me", she says I am not in denial but I do believe an alternative healing. When asked what she is most afraid for it is her family, and the pain. She has been managed on hydromorphone 1 mg every 2 hours, it was unclear she had been on time-released morphine, they are going to initiate this. She was getting relief "maybe" but caused her to sleep all the time. We also discussed an alternative sleeping might have been her worsening liver failure. Meds/Allgy Home Medications Ambulatory Orders Medication Instructions Recorded Confirmed cimetidine 800 mg tablet 800 mg PO HS 09/26/24 10/13/24 cyclobenzaprine 10 mg tablet 10 mg PO HS 09/26/24 10/13/24 docusate sodium 100 mg capsule 100 mg PO DAILY 09/26/24 10/13/24 gabapentin 300 mg capsule 900 mg PO HS 09/26/24 10/13/24 polyethylene glycol 3350 17 17 g PO DAILY 09/26/24 10/13/24 gram/dose oral powder (Miralax) meloxicam 7.5 mg tablet 7.5 mg PO BID #20 tabs 09/27/24 10/13/24 oxycodone 10 mg tablet 10 mg PO Q8H PRN pain #10 tabs 09/27/24 10/13/24 morphine 15 mg tablet,extended 30 mg PO BID 10/13/24 10/13/24 release (MS Contin) Allergies Allergies Allergy/AdvReac Type Severity Reaction Status Date / Time No Known Drug Allergies Allergy Verified 10/12/24 16:18 Palliative Care Performance Status Performance status: Patient had been functional prior to onset of worsening abdominal pain 4 weeks ago. Pain limiting function currently. Suspect has had progressive functional decline. Palliative Care Discussion: Met with patient, son at bedside. Introduced palliative care, discussed patient's goals, patient does understand the seriousness of her illness, but unclear if understands the severity of her prognosis as far as time line. She very much wants to continue with her alternative treatments, does not feel she is in denial, but does believe in healing. She has been doing supplemental treatments, currently has stopped, has been modifying her diet, and has scheduled hyperbaric. She felt like chemotherapy this is not the right thing for her, and understood it would not cure her. She does report the think she worries about most since she is afraid for her family, afraid for them to be without her and afraid of her pain and suffering. She reports she does have 2 sons, dominant grandson. She has 2 sister in-laws who are supportive. Her was not at bedside to begin with. Introduced in the context of pain management, "buckets" are morphine, fentanyl patches, and methadone. Patient most likely given her dislike of the sleepiness had more to do with her acute liver failure. Introduced given the fact she would not be pursuing curative treatment, hospice, she could still pursue her alternative treatments. She had her "hospice wouldn't treat pneumonia only keep her comfortable". We did discuss that we treat infections but not bring in for hospital with IV antibiotics, but focus would be comfort focused and focused on keeping her pain controlled and supporting her family. We discussed also would be living until she , with the focus on her quality of life. We would hope for the best for her as well for more time, but also it would be available 04/02, their 911 and more robust support. Also could continue with outpatient palliative care with the limitations of Sat-Saturday, but will get order from oncology. Called back and arrived. Pastor. Met with Pastor, patient who is quite subdued and quiet through visit, as well as son present Pastor had appropriate questions of the difference between palliative and hospice care, explaining those as above, but also recommendation consider hospice. He asked if she was "going to go back to work" and if she needed someone with her 04/02. I discussed given her current decline in function and symptoms, she has been you need for support, Pastor owns his own company, and when he is not working they do not have income. His son is able to help but he was quite shocked as far as discussion of prognosis, with metastatic disease would on the outlier be 6 months or less. Recommendation for hospice for more robust team, but willing to follow with palliative care as well. They agreed they needed to digest this information, and will meet again tomorrow. Impression Impression: This is a 43-year-old have worsening metastatic colon cancer, presenting with uncontrolled pain, acute liver failure most likely multifactorial, high symptom burden and concern for worsening prognosis. Palliative care meeting with patient and family to define goals of care. Vitals Vital Signs 10/12/24 16:18 10/12/24 16:54 10/12/24 16:56 10/12/24 17:11 10/12/24 18:00 10/12/24 18:15 10/12/24 18:30 10/12/24 18:45 10/12/24 19:00 10/12/24 19:14 10/12/24 21:14 10/12/24 21:30 10/12/24 22:00 10/12/24 22:30 10/12/24 23:00 10/12/24 23:30 10/13/24 02:10 10/13/24 02:23 10/13/24 03:13 10/13/24 05:27 10/13/24 06:30 10/13/24 10:23 10/13/24 10:28 10/13/24 11:00 10/13/24 12:25 10/13/24 13:00 10/13/24 14:00 10/13/24 15:00 10/13/24 16:00 10/13/24 16:40 10/13/24 20:28 10/13/24 23:29 10/14/24 02:58 10/14/24 08:19 10/14/24 13:25 10/14/24 15:32 10/14/24 17:02 Height 5 ft 3 in 5 ft 3 in Weight 158 lb 11.725 oz 158 lb 11.725 oz BMI 28.1 BP 157/135 H 99/68 99/68 104/70 96/71 98/69 100/70 104/72 91/70 106/65 107/74 94/68 91/72 99/69 103/72 102/77 99/69 103/65 112/70 121/74 95/64 95/6 4 98/76 95/66 111/75 104/63 106/82 137/92 H 165/98 H 154/92 H 127/86 123/84 132/ 86 H 195/115 H Respiration 30 H 24 26 H 24 16 18 18 20 16 16 18 20 20 20 20 20 16 16 16 25 H 20 20 20 20 16 18 20 20 16 18 20 18 20 Pulse 140 H 132 H 120 H 121 H 111 H 107 H 102 H 101 H 97 95 88 91 92 101 H 94 96 97 101 H 116 H 117 H 112 H 97 100 87 80 92 92 102 H 93 89 90 8 6 100 Temp 99.1 F 96.1 F L 98.0 F 97.7 F 97.3 F L 97.5 F L 97.5 F L 98.1 F 98.1 F 97.9 F Temp Source Oral Temporal Artery Scan Oral Temporal Artery Scan Temporal Artery Scan Temporal Artery Scan Temporal Artery Scan Temporal Artery Scan Temporal Artery Scan Temporal Artery Scan Pulse Oximetry 87 L 93 90 L 90 L 94 95 95 97 97 96 98 98 97 94 96 94 96 95 95 94 97 96 96 95 94 96 96 94 93 95 92 94 93 93 Oxygen Flow Rate 4 PFSH Active Problems All Active Problems (Updated 10/14/24 @ 17:41 by JAYJAY Castillo) Counseling regarding advanced care planning and goals of care (Acute) Inflammatory liver disease, unspecified (Acute) Colon cancer metastasized to multiple sites (Acute) Elevated blood pressure reading (Acute) Cancer associated pain (Acute) Abdominal pain (Acute) Medical History Medical History (Updated 10/14/24 @ 17:41 by JAYJAY Castillo) History of colon cancer Surgical History Surgical History History of colectomy Social History Social History Smoking Status: Never smoker Living arrangement: At home Marital Status: Living Condition: With spouse/s.o. Support Person: Yes Relationship: Physical Activity: Walking and Running Level: Independent Home Mobility Equipment: Cane Do you feel safe in your home environment?: Yes Suffered physical, verbal, emotional, or financial abuse?: No History of Abuse: No Frequency: Occasional Substance Use: cannabis (any form) Are you sexually active?: Yes POLST Patient has POLST: No Review of Systems Limited ROS done, palliative care he did meet with patient to review goals of care. She is having abdominal pain and tenderness, has just received some hydromorphone, by end of visit is more comfortable visibly. She does report has had intermittent constipation as she was not staying on top of it with her MiraLAX. She has been eating only bites, has had weight loss, and is feeling quite weak. Exam Exam Vital Signs: Vital Signs x48h Temp Pulse Resp BP Pulse Ox O2 Flow Rate 10/14/24 15:32 97.9 F 100 20 195/115 H 93 4 10/14/24 13:25 98.1 F 86 18 132/86 H 93 4 Patient laying in bed; cold pack on abdomen, tearful through first visit. Voice weak. Assessment & Plan Assessment & Plan (1) Inflammatory liver disease, unspecified: Assessment: Patient has been taking supplements for alternative treatment, very extensive li st. Reports when at ED and liver enzymes elevated had stopped, they are trending down, but suspect multifactorial with worsening liver disease as well. Code(s): K75.9 - Inflammatory liver disease, unspecified Plan: Trending down, discussed the worsening failure most likely adding to her sy mptoms of sedation (not clearing morphine) and if improved, may better be able to tolerate. (2) Colon cancer metastasized to multiple sites: Assessment: Patient perception is not getting information about flights getting worse or not getting worse because of multiple scans in multiple settings when meeting with oncologist. We did discuss that in the context of [facility], they are comparing it to her scans from 07/21/2024 that does show worsening and progressive disease. Code(s): C18.9 - Malignant neoplasm of colon, unspecified (3) Cancer associated pain: Assessment: Did discuss with patient most likely would benefit from methadone, but needing more close monitoring to initiate and follow this, this another consideration for transitioning to hospice. Would recommend at this point, continue to reinitiate morphine, had been effective, but is using oxycodone appropriately, is not causing n/v, has had some constipation. Can consider Methylphenidate if persistent sedation and to help with fatigue. Code(s): G89.3 - Neoplasm related pain (acute) (chronic) (4) Counseling regarding advanced care planning and goals of care: Assessment: Met with patient and son met with patient and son regarding goals of care. Introduced hospice versus palliative care. Reviewed recommendations, has been said they have been "offered hospice 3 times". Concerned regarding recognizing possibility worsening prognosis and needing more support. Offered hospice introductory visit, as well as to pursue outpatient palliative care referral. Will follow-up tomorrow. Code(s): Z71.89 - Other specified counseling Plan Plan to follow-up tomorrow with patient has been reporting further define goals of care, services accepted, anticipatory guidance. Medications: Discontinued docusate sodium Discontinued Reason: Completed therapy 100 mg PO DAILY 30 caps 0RF C18.9 - Malignant neoplasm of colon, unspecified
[2024-10-14] MEDS: MORPHINE SULFATE ER 30 MG TABLET PO SCH (19:04)
[2024-10-14] MEDS: GABAPENTIN 300 MG CAPSULE PO SCH (20:04)
[2024-10-14] MEDS: CYCLOBENZAPRINE 10 MG TABLET PO SCH (20:04)
[2024-10-14] MEDS: FAMOTIDINE 20 MG TABLET PO SCH (20:05)
[2024-10-15 06:32] LABS: BASOPHILS % (AUTO) 0.2 %; HCT - HEMATOCRIT 35.3 % (37.0-47.0); HGB - HEMOGLOBIN 11.5 g/dL (12.0-16.0); LYMPHOCYTES # (AUTO) 0.9 10^3/uL (1.5-3.5); LYMPHOCYTES % (AUTO) 5.2 %; MEAN CORPUSCULAR HEMOGLOBIN 30.2 pg (27.0-31.0); MEAN CORPUSCULAR HGB CONC 32.6 g/dL (32.0-36.0); MEAN CORPUSCULAR VOLUME 92.7 fL (81.0-99.0); MEAN PLATELET VOLUME 10.1 fL (7.9-10.8); MONOCYTES # (AUTO) 1.4 10^3/uL (0.0-1.0); MONOCYTES % (AUTO) 8.6 %; NEUTROPHILS # (AUTO) 13.9 10^3/uL (1.5-6.6); NEUTROPHILS % (AUTO) 85.6 %; PLT - PLATELET COUNT 356 10^3/uL (130-450); RED BLOOD COUNT 3.81 10^6/uL (4.20-5.40); RED CELL DISTRIBUTION WIDTH 13.1 % (12.0-15.0); WHITE BLOOD COUNT 16.3 x10^3/uL (4.8-10.8)
[2024-10-15 06:51] LABS: ALBUMIN 2.5 g/dL (3.2-5.5); ALBUMIN/GLOBULIN RATIO 0.9 (1.0-2.2); BILIRUBIN,TOTAL 1.1 mg/dL (0.2-1.0); CREATININE 0.6 mg/dL (0.6-1.3); POTASSIUM 4.9 mmol/L (3.5-4.5); TOTAL PROTEIN 5.2 g/dL (6.4-8.9)
[2024-10-15] MEDS: polyethylene glycoL 3350 17 GM PACKET PO SCH (08:03)
[2024-10-15] MEDS: DOCUSATE SODIUM 100 MG CAPSULE PO SCH (08:04)
[2024-10-15] MEDS: CYCLOBENZAPRINE 10 MG TABLET PO SCH (09:25)
--- NOTE | 2024-10-15 16:20 | PROVIDER PROGRESS NOTE ---
Subjective Prog Note Date Prog Note Date: 10/15/24 Subjective Subjective: She is comfortable this afternoon. Lying on her side, in bed. easily awakens, and tells me that she is indeed comfortable. She is able eat again, now that her pain is Current Medications Current Medications Current Medications: Current Medications Generic Name Dose Route Start Last Admin Trade Name Freq PRN Reason Stop Dose Admin Cyclobenzaprine HCl 10 mg 10/15/24 08:00 10/15/24 09:25 Cyclobenzaprine 10 Mg Tablet PO Not Given 0800 TAMIKA Dexamethasone 4 mg 10/14/24 08:00 10/15/24 08:04 Dexamethasone 4 Mg Tablet PO 4 mg DAILYWM TAMIKA Administration Docusate Sodium 100 mg 10/15/24 09:00 10/15/24 08:04 Docusate Sodium 100 Mg Capsule PO 100 mg DAILY TAMIKA Administration Famotidine 20 mg 10/14/24 21:00 10/15/24 08:04 Famotidine 20 Mg Tablet PO 20 mg BID TAMIKA Administration Gabapentin 900 mg 10/14/24 21:00 10/14/24 20:04 Gabapentin 300 Mg Capsule PO 900 mg HS TAMIKA Administration Hydromorphone HCl 1.5 mg 10/14/24 12:00 10/15/24 16:09 Hydromorphone 0.5 Mg/0.5 Ml Syringe IVP 1.5 mg Q2H TAMIKA Administration Ibuprofen 400 mg 10/13/24 16:28 Ibuprofen 400 Mg Tablet PO Q4HR PRN Pain 1 to 4 Morphine Sulfate 30 mg 10/14/24 19:00 10/15/24 06:58 Morphine Sulfate Er 30 Mg Tablet PO 30 mg Q12H TAMIKA Administration Ondansetron HCl 4 mg 10/13/24 16:28 Ondansetron Odt 4 Mg Tablet TL Q6HR PRN Nausea / Vomiting Ondansetron HCl 4 mg 10/13/24 16:28 Ondansetron 4 Mg/2 Ml Vial IVP Q6HR PRN Nausea / Vomiting Oxycodone HCl 5 mg 10/14/24 11:04 Oxycodone 5 Mg Tablet PO Q4HR PRN Moderate Pain (Level 4-6) Polyethylene Glycol 17 gm 10/15/24 09:00 10/15/24 08:03 Polyethylene Glycol 3350 17 Gm Packet PO 17 gm DAILY TAMIKA Administration Prochlorperazine Edisylate 10 mg 10/13/24 16:28 Prochlorperazine 10 Mg/2 Ml Vial IVP Q6HR PRN Nausea / Vomiting Sodium Chloride 10 ml 10/13/24 16:28 Sodium Chloride Flush 0.9% 10 Ml Syringe IVP PRN PRN NEEDED PER PROVIDER ORDERS Sodium Chloride 10 ml 10/13/24 17:00 10/15/24 16:09 Sodium Chloride Flush 0.9% 10 Ml Syringe IVP 10 ml 0100,0900,1700 TAMIKA Administration Objective Vital Signs/Intake & Output Reviewed Vital Signs: Yes Vital Signs: Vital Signs x48h Temp Pulse Resp BP Pulse Ox O2 Flow Rate 10/15/24 11:30 36.7 C 73 16 120/80 98 4 Intake & Output: Intake & Output 10/12/24 10/13/24 10/14/24 10/15/24 23:59 23:59 23:59 23:59 Intake Total 1100 / 1100 4073 / 4073 4273 / 4273 2272 / 2272 Balance 1100 / 1100 4073 / 4073 4273 / 4273 2272 / 2272 Weight (kg) 72 kg 72 kg Objective General Appearance: positive No acute distress Eyes Bilateral: positive PERRL ENT: positive No signs of dehydration Neck: positive Nml inspection Respiratory: positive No respiratory distress and Breath sounds nml Cardiovascular: positive Regular rate & rhythm Abdomen: positive No distention Skin: positive Color nml Extremities: positive Non-tender and No pedal edema Neurologic/Psychiatric: positive Oriented x3 Lab Results 10/15/24 06:10 10/15/24 06:10 Other Labs: Lab Results x24hrs 10/15/24 Range/Units 06:10 WBC 16.3 H (4.8-10.8) x10^3/uL RBC 3.81 L (4.20-5.40) 10^6/uL Hgb 11.5 L (12.0-16.0) g/dL Hct 35.3 L (37.0-47.0) % MCV 92.7 (81.0-99.0) fL MCH 30.2 (27.0-31.0) pg MCHC 32.6 (32.0-36.0) g/dL RDW 13.1 (12.0-15.0) % Plt Count 356 (130-450) 10^3/uL MPV 10.1 (7.9-10.8) fL Neut # (Auto) 13.9 H (1.5-6.6) 10^3/uL Lymph # (Auto) 0.9 L (1.5-3.5) 10^3/uL [place] # (Auto) 1.4 H (0.0-1.0) 10^3/uL Eos # (Auto) 0.0 (0.0-0.7) 10^3/uL Baso # (Auto) 0.0 (0.0-0.1) 10^3/uL Absolute Nucleated RBC 0.00 x10^3/uL Nucleated RBC % 0.0 /100WBC Sodium 135 (135-145) mmol/L Potassium 4.9 H (3.5-4.5) mmol/L Chloride 104 (101-111) mmol/L Carbon Dioxide 25 (21-32) mmol/L Anion Gap 6.0 (6-13) BUN 19 (6-20) mg/dL Creatinine 0.6 (0.6-1.3) mg/dL Estimated GFR (MDRD) 108 (>89) Glucose 114 H (74-104) mg/dL Calcium 8.0 L (8.5-10.3) mg/dL Total Bilirubin 1.1 H (0.2-1.0) mg/dL AST 69 H (10-42) IU/L ALT 67 H (10-60) IU/L Alkaline Phosphatase 653 H (42-121) IU/L Total Protein 5.2 L (6.4-8.9) g/dL Albumin 2.5 L (3.2-5.5) g/dL Globulin 2.7 (2.1-4.2) g/dL Albumin/Globulin Ratio 0.9 L (1.0-2.2) Assessment/Plan Problem List (1) Colon cancer metastasized to multiple sites: Impression: She is more comfortable today and has been able to eat and drink. Review of PDMP shows that this patient was on morphine sulfate ER 30 mg twice daily as well as oxycodone for breakthrough pain at home. She gives a history of her colon cancer being gone as of several months ago. This does not seem consistent with other medical records. Discussed with JAYJAY Eugene of palliative care. NEEDLE VALVE OPERATOR Stefan has consulted on this patient has been able to obtain some records regarding her cancer care at [facility]. It seems that she has refused systemic chemotherapy and has pursued homeopathic cures for her cancer. Her disease has progressed. Pt and family open to the idea of palliative care at this time, and possibly would consider hospice. Patient is most concerned about avoidance of pain, as well as concerns for her family's well being. Further discussion with palliative care on 10/15, pt and family would like hospice informational visit on 10.16. This was decided post 5pm. I have added order in chart and will call hospice in the AM for the consult. would like to be present for this meeting. (2) Inflammatory liver disease, unspecified: Impression: Sharp increase in her transaminases over the last month or so, possibly related to supplement use. She has since stopped the supplements and transaminases seem to be trending downward. 10/12/24 10/15/24 16:49 06:10 Total Bilirubin 1.9 H 1.1 H AST 880 H 69 H ALT 243 H 67 H Alkaline Phosphatase 1371 H 653 H (3) Cancer associated pain: Impression: I have moved the Dilaudid from 1.5 mg every 2 hours scheduled to 1.5 mg every 2 hours as needed. I have discussed with the patient that I would like her to global climate change researcher to oral oxycodone. We had a discussion regarding oral Dilaudid versus oral oxycodone she would prefer to try the oral oxycodone. She has been on oxy IR 10 mg at home. Will give her oxy IR 10 mg every 4 hours as needed in addition to her morphine sulfate ER 30 mg twice daily. In the last 24 hours she has had 7 doses of IV Dilaudid this was 1.5 mg per dose she is also gone on to her extended release morphine. I have spent 51 minutes in the care of this patient today. This includes time [id number], review and ordering of diagnostic imaging and laboratory studies and consultation with other providers. Monitoring the patient's signs symptoms, evaluation of medication effectiveness and patient's response to treatment.
--- NOTE | 2024-10-15 17:30 | Palliative Care ---
Vitals Vital Signs 10/12/24 16:18 10/12/24 16:54 10/12/24 16:56 10/12/24 17:11 10/12/24 18:00 10/12/24 18:15 10/12/24 18:30 10/12/24 18:45 10/12/24 19:00 10/12/24 19:14 10/12/24 21:14 10/12/24 21:30 10/12/24 22:00 10/12/24 22:30 10/12/24 23:00 10/12/24 23:30 10/13/24 02:10 10/13/24 02:23 10/13/24 03:13 10/13/24 05:27 10/13/24 06:30 10/13/24 10:23 10/13/24 10:28 10/13/24 11:00 10/13/24 12:25 10/13/24 13:00 10/13/24 14:00 10/13/24 15:00 10/13/24 16:00 10/13/24 16:40 10/13/24 20:28 10/13/24 23:29 10/14/24 02:58 10/14/24 08:19 10/14/24 13:25 10/14/24 15:32 10/14/24 17:02 10/14/24 20:51 10/15/24 00:05 10/15/24 05:00 10/15/24 07:40 10/15/24 11:30 10/15/24 17:29 Height 5 ft 3 in 5 ft 3 in 5 ft 3 in Weight 158 lb 11.725 oz 158 lb 11.725 oz 158 lb 11.725 oz BMI 28.1 28.1 BP 157/135 H 99/68 99/68 104/70 96/71 98/69 100/70 104/72 91/70 106/65 107/74 94/68 91/72 99/69 103/72 102/77 99/69 103/65 112/70 121/74 95/64 95/6 4 98/76 95/66 111/75 104/63 106/82 137/92 H 165/98 H 154/92 H 127/86 123/84 132/ 86 H 195/115 H 128/93 H 128/73 132/86 H 146/85 H 120/80 Respiration 30 H 24 26 H 24 16 18 18 20 16 16 18 20 20 20 20 20 16 16 16 25 H 20 20 20 20 16 18 20 20 16 18 20 18 20 20 16 16 16 16 Pulse 140 H 132 H 120 H 121 H 111 H 107 H 102 H 101 H 97 95 88 91 92 101 H 94 96 97 101 H 116 H 117 H 112 H 97 100 87 80 92 92 102 H 93 89 90 8 6 100 86 79 79 78 73 Temp 99.1 F 96.1 F L 98.0 F 97.7 F 97.3 F L 97.5 F L 97.5 F L 98.1 F 98.1 F 97.9 F 97.7 F 97.3 F L 98.1 F 98.2 F 98.1 F Temp Source Oral Temporal Artery Scan Oral Temporal Artery Scan Temporal Artery Scan Temporal Artery Scan Temporal Artery Scan Temporal Artery Scan Temporal Artery Scan Temporal Artery Scan Temporal Arter y Scan Temporal Artery Scan Temporal Artery Scan Temporal Artery Scan Temporal Artery Scan Pulse Oximetry 87 L 93 90 L 90 L 94 95 95 97 97 96 98 98 97 94 96 94 96 95 95 94 97 96 96 95 94 96 96 94 93 95 92 94 93 93 93 97 97 98 98 Oxygen Flow Rate 4 Meds/Allgy Home Medications Ambulatory Orders Medication Instructions Recorded Confirmed cimetidine 800 mg tablet 800 mg PO HS 09/26/24 10/13/24 cyclobenzaprine 10 mg tablet 10 mg PO HS 09/26/24 10/13/24 docusate sodium 100 mg capsule 100 mg PO DAILY 09/26/24 10/13/24 gabapentin 300 mg capsule 900 mg PO HS 09/26/24 10/13/24 polyethylene glycol 3350 17 17 g PO DAILY 09/26/24 10/13/24 gram/dose oral powder (Miralax) meloxicam 7.5 mg tablet 7.5 mg PO BID #20 tabs 09/27/24 10/13/24 oxycodone 10 mg tablet 10 mg PO Q8H PRN pain #10 tabs 09/27/24 10/13/24 morphine 15 mg tablet,extended 30 mg PO BID 10/13/24 10/13/24 release (MS Contin) Allergies Allergies Allergy/AdvReac Type Severity Reaction Status Date / Time No Known Drug Allergies Allergy Verified 10/12/24 16:18 CC HPI Chief Complaint Chief Complaint: Pain of neoplastic origin; goals of care History Obtained From Records Reviewed: hospital notes/ labs since last visit History obtained from: patient History of Present Illness HPI: See HPI from 10/14. Patient has continued to feel better, pain controlled, sedation improved. Still very weak and shakey, mostly bedbound but up with help this morning with to shower. Has been eating some, able to engage. Still very tearful through family meeting but not as distressed as yesterday. Palliative Care Performance Status Performance status: Patient had been functional prior to onset of worsening abdominal pain 4 weeks ago. Pain limiting function currently. Suspect has had progressive functional decline. Palliative Care Discussion: Met with patient and again, patient very tearful to visit but able to engage. Counseling provided regarding again hospice versus palliative care, [facility]en [facility], says is "not ready for hospice". Is talking about working remotely from work, and continuing on pursuing her alternative treatments. She has signed up with [facility], but we did review her ongoing decline over the last several months, concern for progressive disease, and again hoping for the best with her, but also preparing for the worst. In the context of this we discussed hospice again as a support team for her and her and family vs what palliative care can offer. able to identify though hoping for the best recognizes prognosis most likely weeks. He has been thinking through how and who could support them, his son will be here till next week, they are dependent on his income for work. He is also caring for his parents, who also has significant health problems. They do live in [address] [place] [address], worried a little bit about accommodating the team, we discussed that this is not unusual we have patients who receive care either palliative or hospice with no problems in the context of this.Patient does identify she likes to have some downtime by herself, does not like to be covered upon. Counseling provided regarding the context of an informational visit, even though they have suggested hospice prior has not actually met or talk to hospice team. They feel this would be helpful in making their decision, hospitalist to put in referral for hospice informational, and has been will make his self available tomorrow morning. We did talk about overall goals, patient does want to be able to at home, does not want to in the hospital. We discussed in the context of this hospice could be the 911, and support her goals for staying out of the hospital and provide her family support. Given her reluctance and tearfulness regarding her journey, did not introduce the POLST at this time. PFSH Active Problems All Active Problems (Updated 10/14/24 @ 17:41 by JAYJAY Castillo) Counseling regarding advanced care planning and goals of care (Acute) Inflammatory liver disease, unspecified (Acute) Colon cancer metastasized to multiple sites (Acute) Elevated blood pressure reading (Acute) Cancer associated pain (Acute) Abdominal pain (Acute) Medical History Medical History (Updated 10/14/24 @ 17:41 by JAYJAY Castillo) History of colon cancer Surgical History Surgical History History of colectomy Social History Social History Smoking Status: Never smoker Living arrangement: At home Marital Status: Living Condition: With spouse/s.o. Support Person: Yes Relationship: Physical Activity: Walking and Running Level: Independent Home Mobility Equipment: Cane Do you feel safe in your home environment?: Yes Suffered physical, verbal, emotional, or financial abuse?: No History of Abuse: No Frequency: Occasional Substance Use: cannabis (any form) Are you sexually active?: Yes POLST Patient has POLST: No Exam Exam Vital Signs: Vital Signs x48h Temp Pulse Resp BP Pulse Ox O2 Flow Rate 10/15/24 11:30 98.1 F 73 16 120/80 98 4 Impression Impression: This is a 43-year-old have worsening metastatic colon cancer, presenting with uncontrolled pain, acute liver failure most likely multifactorial, high symptom burden and concern for worsening prognosis. Patient is doing much better today, pain better controlled, titrating over to oral meds. Palliative care meeting with patient and family to define goals of care. Assessment & Plan Assessment & Plan (1) Counseling regarding advanced care planning and goals of care: Assessment: Patient does have some insight into the seriousness of her illness, but continues to want to pursue her supportive treatments. Aware she can continue on these but not covered by hospice, either on hospice or palliative care. Aware now of concerns for burdens of supplements, and will move forward with caution. Code(s): Z71.89 - Other specified counseling Plan: Both patient and agreed having informational visit and meeting hospice would be of help in further defining and helping them understand their current options. Have received outpatient referral from oncologist if chooses to pursue palliative care. (2) Cancer associated pain: Assessment: Patient and transition to oral morphine with good results, no sedation, is tolerating and with no distress at time of visit. Code(s): G89.3 - Neoplasm related pain (acute) (chronic) Plan Will await outcome of hospice informational visit, if patient not ready, will see patient next week in home setting with palliative outpatient care. Medications: Discontinued docusate sodium Discontinued Reason: Completed therapy 100 mg PO DAILY 30 caps 0RF C18.9 - Malignant neoplasm of colon, unspecified
[2024-10-16] MEDS: oxyCODONE 5 MG TABLET PO PRN ×2 (00:35→22:05)
[2024-10-16] MEDS: HYDROmorphone 0.5 MG/0.5 ML SYRINGE IVP PRN (02:53)
[2024-10-16 05:46] LABS: BASOPHILS % (AUTO) 0.2 %; EOSINOPHILS % (AUTO) 0.6 %; HCT - HEMATOCRIT 35.8 % (37.0-47.0); HGB - HEMOGLOBIN 11.8 g/dL (12.0-16.0); LYMPHOCYTES % (AUTO) 6.4 %; MEAN CORPUSCULAR HEMOGLOBIN 30.2 pg (27.0-31.0); MEAN CORPUSCULAR VOLUME 91.6 fL (81.0-99.0); MEAN PLATELET VOLUME 9.8 fL (7.9-10.8); MONOCYTES % (AUTO) 9.8 %; NEUTROPHILS % (AUTO) 82.4 %; PLT - PLATELET COUNT 333 10^3/uL (130-450); RED BLOOD COUNT 3.91 10^6/uL (4.20-5.40)
[2024-10-16 05:53] LABS: ABNORMAL LYMPHS % (MANUAL) 0 %
[2024-10-16 06:05] LABS: ALBUMIN 2.5 g/dL (3.2-5.5); BILIRUBIN,TOTAL 1.1 mg/dL (0.2-1.0); CALCIUM 8.2 mg/dL (8.5-10.3); CREATININE 0.7 mg/dL (0.6-1.3); POTASSIUM 5.1 mmol/L (3.5-4.5); TOTAL PROTEIN 5.1 g/dL (6.4-8.9)
[2024-10-16 06:31] LABS: BAND NEUTROPHILS % (MANUAL) 8 %; EOSINOPHILS # (MANUAL) 0.4 10^3/uL (0-0.7); LYMPHOCYTES # (MANUAL) 0.8 10^3/uL (1.5-3.5); LYMPHOCYTES % (MANUAL) 4 %; MONOCYTES # (MANUAL) 2.5 10^3/uL (0.0-1.0); NEUTROPHILS # (MANUAL) 15.4 10^3/uL (1.5-6.6)
[2024-10-16 06:32] LABS: DIFFERENTIAL COMMENT MANUAL DIFFERENTIAL; PLATELET ESTIMATE, MANUAL NORMAL (130-450,000) (NORMAL); PLATELET MORPHOLOGY NORMAL APPEARANCE (NORMAL); RBC MORPHOLOGY (MULTIPLE) NORMAL APPEARANCE (NORMAL); WBC MORPHOLOGY (MULTIPLE) NORMAL APPEARANCE (NORMAL)
--- NOTE | 2024-10-16 12:40 | PROVIDER PROGRESS NOTE ---
Subjective Prog Note Date Prog Note Date: 10/16/24 Subjective Subjective: had a terrible night because her pain got out of control. She says that because meds were PRN, and she was sleeping, she was not given meds and then pain became uncontrolled. She is eating well. Current Medications Current Medications Current Medications: Current Medications Generic Name Dose Route Start Last Admin Trade Name Freq PRN Reason Stop Dose Admin Cyclobenzaprine HCl 10 mg 10/15/24 08:00 10/16/24 09:19 Cyclobenzaprine 10 Mg Tablet PO 10 mg 0800 TAMIKA Administration Docusate Sodium 100 mg 10/15/24 09:00 10/16/24 08:17 Docusate Sodium 100 Mg Capsule PO 100 mg DAILY TAMIKA Administration Famotidine 20 mg 10/14/24 21:00 10/16/24 08:16 Famotidine 20 Mg Tablet PO 20 mg BID TAMIKA Administration Gabapentin 900 mg 10/14/24 21:00 10/15/24 18:47 Gabapentin 300 Mg Capsule PO 900 mg HS TAMIKA Administration Hydromorphone HCl 1.5 mg 10/15/24 16:36 10/16/24 02:53 Hydromorphone 0.5 Mg/0.5 Ml Syringe IVP 1.5 mg Q2H PRN Administration PAIN >8 Ibuprofen 400 mg 10/13/24 16:28 Ibuprofen 400 Mg Tablet PO Q4HR PRN Pain 1 to 4 Morphine Sulfate 30 mg 10/14/24 19:00 10/16/24 06:49 Morphine Sulfate Er 30 Mg Tablet PO 30 mg Q12H TAMIKA Administration Ondansetron HCl 4 mg 10/13/24 16:28 Ondansetron Odt 4 Mg Tablet TL Q6HR PRN Nausea / Vomiting Ondansetron HCl 4 mg 10/13/24 16:28 Ondansetron 4 Mg/2 Ml Vial IVP Q6HR PRN Nausea / Vomiting Oxycodone HCl 10 mg 10/16/24 13:00 Oxycodone 5 Mg Tablet PO Q6H TAMIKA Polyethylene Glycol 17 gm 10/15/24 09:00 10/16/24 08:17 Polyethylene Glycol 3350 17 Gm Packet PO 17 gm DAILY TAMIKA Administration Prochlorperazine Edisylate 10 mg 10/13/24 16:28 Prochlorperazine 10 Mg/2 Ml Vial IVP Q6HR PRN Nausea / Vomiting Sodium Chloride 10 ml 10/13/24 16:28 Sodium Chloride Flush 0.9% 10 Ml Syringe IVP PRN PRN NEEDED PER PROVIDER ORDERS Sodium Chloride 10 ml 10/13/24 17:00 10/16/24 09:20 Sodium Chloride Flush 0.9% 10 Ml Syringe IVP 10 ml 0100,0900,1700 TAMIKA Administration Objective Vital Signs/Intake & Output Reviewed Vital Signs: Yes Vital Signs: Vital Signs x48h Temp Pulse Resp BP Pulse Ox O2 Flow Rate 10/16/24 10:00 4 10/16/24 09:00 36.5 C 94 16 145/97 H 94 4 Intake & Output: Intake & Output 10/13/24 10/14/24 10/15/24 10/16/24 23:59 23:59 23:59 23:59 Intake Total 4073 / 4073 4273 / 4273 2872 / 2872 170 / 170 Balance 4073 / 4073 4273 / 4273 2872 / 2872 170 / 170 Weight (kg) 72 kg 72 kg Objective General Appearance: positive No acute distress Eyes Bilateral: positive PERRL ENT: positive No signs of dehydration Neck: positive Nml inspection Respiratory: positive No respiratory distress and Breath sounds nml Cardiovascular: positive Regular rate & rhythm Abdomen: positive No distention Skin: positive Color nml Extremities: positive Non-tender and No pedal edema Neurologic/Psychiatric: positive Oriented x3 Lab Results 10/16/24 05:39 10/16/24 05:39 Other Labs: Lab Results x24hrs 10/16/24 Range/Units 05:39 WBC 19.0 H (4.8-10.8) x10^3/uL RBC 3.91 L (4.20-5.40) 10^6/uL Hgb 11.8 L (12.0-16.0) g/dL Hct 35.8 L (37.0-47.0) % MCV 91.6 (81.0-99.0) fL MCH 30.2 (27.0-31.0) pg MCHC 33.0 (32.0-36.0) g/dL RDW 13.0 (12.0-15.0) % Plt Count 333 (130-450) 10^3/uL MPV 9.8 (7.9-10.8) fL Neut # (Auto) Not Reportable Lymph # (Auto) Not Reportable Worth # (Auto) Not Reportable Eos # (Auto) Not Reportable Baso # (Auto) Not Reportable Absolute Nucleated RBC Not Reportable Total Counted 100 Band Neuts % (Manual) 8 (0 - 10) % Abnorm Lymph % (Manual) 0 % Nucleated RBC % Not Reportable Neutrophils # (Manual) 15.4 H (1.5-6.6) 10^3/uL Lymphocytes # (Manual) 0.8 L (1.5-3.5) 10^3/uL Monocytes # (Manual) 2.5 H (0.0-1.0) 10^3/uL Eosinophils # (Manual) 0.4 (0-0.7) 10^3/uL Basophils # (Manual) 0.0 (0-0.1) 10^3/uL Differential Comment MANUAL DIFFERENTIAL WBC Morphology NORMAL APPEARANCE (NORMAL) Platelet Estimate NORMAL (130-450,000) (NORMAL) Platelet Morphology NORMAL APPEARANCE (NORMAL) RBC Morph Micro Appear NORMAL APPEARANCE (NORMAL) Sodium 134 L (135-145) mmol/L Potassium 5.1 H (3.5-4.5) mmol/L Chloride 101 (101-111) mmol/L Carbon Dioxide 26 (21-32) mmol/L Anion Gap 7.0 (6-13) BUN 20 (6-20) mg/dL Creatinine 0.7 (0.6-1.3) mg/dL Estimated GFR (MDRD) 90 (>89) Glucose 93 (74-104) mg/dL Calcium 8.2 L (8.5-10.3) mg/dL Total Bilirubin 1.1 H (0.2-1.0) mg/dL AST 101 H (10-42) IU/L ALT 72 H (10-60) IU/L Alkaline Phosphatase 935 H (42-121) IU/L Total Protein 5.1 L (6.4-8.9) g/dL Albumin 2.5 L (3.2-5.5) g/dL Globulin 2.6 (2.1-4.2) g/dL Albumin/Globulin Ratio 1.0 (1.0-2.2) Assessment/Plan Problem List (1) Colon cancer metastasized to multiple sites: Impression: She had a bad night due to pain control. I am going to modify medications and schedule her oxycodone to 10mg q6h, hold for RASS -1. I will then let her have oxycodone 5mg PRN. She got one dose of oxycodone 10mg overnight and one does of dilaudid 1.5mg IV. She is very afraid to go home and be in pain, she has been to the ED multiple times for pain and does not want to do this again. Review of PDMP shows that this patient was on morphine sulfate ER 30 mg twice daily as well as oxycodone for breakthrough pain at home. She gives a history of her colon cancer being gone as of several months ago. This does not seem consistent with other medical records. Discussed with JAYJAY Eugene of palliative care, 10/14. DEPUTY PROSECUTING ATTORNEY Stefan has consulted on this patient has been able to obtain some records regarding her cancer care at [facility]. It seems that she has refused systemic chemotherapy and has pursued homeopathic cures for her cancer. Her disease has progressed. Pt and family open to the idea of palliative care at this time, and possibly would consider hospice. Patient is most concerned about avoidance of pain, as well as concerns for her family's well being. Further discussion with palliative care on 10/15, pt and family would like hospice informational visit on 10.16. This was decided post 5pm. I have added order in chart and will call hospice in the AM for the consult. would like to be present for this meeting. 10/16 hospice informational consult. she wants to enroll in hospice. can admit patient on Saturday. She should be able to transfer home with short course of comfort meds for time prior to hospice admit. Discussed with refinery operator vapor recovery unit this AM. (2) Inflammatory liver disease, unspecified: Impression: Sharp increase in her transaminases over the last month or so, possibly related to supplement use. She has since stopped the supplements and transaminases seem to be trending downward, but have since leveled off. 10/12/24 10/15/24 16:49 06:10 Total Bilirubin 1.9 H 1.1 H AST 880 H 69 H ALT 243 H 67 H Alkaline Phosphatase 1371 H 653 H (3) Cancer associated pain: Impression: See plan above. I am moving her over to oral pain meds and hope to get her home tomorrow. I have spent 38 minutes in the care of this patient today. This includes time [id number], review and ordering of diagnostic imaging and laboratory studies and consultation with other providers. Monitoring the patient's signs symptoms, evaluation of medication effectiveness and patient's response to treatment.
[2024-10-16] MEDS: oxyCODONE 5 MG TABLET PO SCH (13:05)
[2024-10-16] MEDS: VENLAFAXINE 37.5 MG TABLET PO SCH ×2 (14:43→16:10)
[2024-10-17 05:47] LABS: BASOPHILS % (AUTO) 0.4 %; HCT - HEMATOCRIT 38.6 % (37.0-47.0); HGB - HEMOGLOBIN 12.3 g/dL (12.0-16.0); LYMPHOCYTES % (AUTO) 6.7 %; MEAN CORPUSCULAR HEMOGLOBIN 29.6 pg (27.0-31.0); MEAN CORPUSCULAR HGB CONC 31.9 g/dL (32.0-36.0); MEAN CORPUSCULAR VOLUME 92.8 fL (81.0-99.0); MEAN PLATELET VOLUME 10.1 fL (7.9-10.8); MONOCYTES % (AUTO) 9.7 %; NEUTROPHILS % (AUTO) 82.3 %; PLT - PLATELET COUNT 305 10^3/uL (130-450); RED BLOOD COUNT 4.16 10^6/uL (4.20-5.40); RED CELL DISTRIBUTION WIDTH 13.1 % (12.0-15.0); WHITE BLOOD COUNT 26.4 x10^3/uL (4.8-10.8)
[2024-10-17 05:55] LABS: ABNORMAL LYMPHS % (MANUAL) 0 %; BAND NEUTROPHILS % (MANUAL) 0 %
[2024-10-17 06:04] LABS: ALBUMIN 2.7 g/dL (3.2-5.5); CALCIUM 8.4 mg/dL (8.5-10.3); CREATININE 0.6 mg/dL (0.6-1.3); POTASSIUM 4.5 mmol/L (3.5-4.5); TOTAL PROTEIN 5.3 g/dL (6.4-8.9)
[2024-10-17 06:21] LABS: LYMPHOCYTES # (MANUAL) 0.8 10^3/uL (1.5-3.5); LYMPHOCYTES % (MANUAL) 3 %; MONOCYTES # (MANUAL) 2.9 10^3/uL (0.0-1.0); NEUTROPHILS # (MANUAL) 22.7 10^3/uL (1.5-6.6)
[2024-10-17 06:22] LABS: DIFFERENTIAL COMMENT MANUAL DIFFERENTIAL; PLATELET ESTIMATE, MANUAL NORMAL (130-450,000) (NORMAL); PLATELET MORPHOLOGY NORMAL APPEARANCE (NORMAL); RBC MORPHOLOGY (MULTIPLE) NORMAL APPEARANCE (NORMAL); WBC MORPHOLOGY (MULTIPLE) NORMAL APPEARANCE (NORMAL)
[2024-10-17 08:31] VITALS: O2SAT 94
[2024-10-17] MEDS: IBUPROFEN 400 MG TABLET PO PRN (08:48)
[2024-10-17 12:50] LABS: BILIRUBIN,URINE SMALL (NEGATIVE); GLUCOSE, URINE (UA) NEGATIVE (NEGATIVE); KETONES,URINE (UA) NEGATIVE (NEGATIVE); LEUKOCYTE ESTERASE, URINE NEGATIVE (NEGATIVE); NITRITE,URINE NEGATIVE (NEGATIVE); OCCULT BLOOD,URINE NEGATIVE (NEGATIVE); PROTEIN,URINE NEGATIVE (NEGATIVE); UROBILINOGEN,URINE 2 E.U./dL (NORMAL)
[2024-10-17 12:52] LABS: CLARITY,URINE CLEAR (CLEAR)
[2024-10-17 13:02] LABS: BACTERIA,URINE Few /HPF (None Seen); RBC,URINE 0-5 /HPF (0-5); SQUAMOUS EPITHELIAL CELL,UR FEW Squamous (<= Few); WBC,URINE 0-3 /HPF (0-5)
[2024-10-17 13:51] VITALS: BP 156/98; TEMP 96.8
--- NOTE | 2024-10-17 19:48 | Discharge Summary ---
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 In the ER, she was noted to have AST 880, ALT 243, alkaline phosphatase 1371. She also reported some shortness of breath related to pain. She underwent CTA chest, CT abdomen/pelvis, abdomen ultrasound which showed metastatic disease throughout her lungs, lymph nodes, liver,. She underwent MRCP which showed no biliary obstruction but did show extensive liver mets, new from July of this year. GI specialist was contacted outside facility, who states there is no need for transfer, that she can be medically managed with supportive care at this time. Hospitalist was contacted for admission for severe acute pain and for acute liver failure secondary to metastatic disease CONSULTS | PROCEDURES Consultations: Palliative care, Hospice informational visit Procedures: CT abdomen pelvis: Extensive liver metastases new since July 2024. Hepatomegaly. Enlarged retroperitoneal lymph nodes concerning for metastatic disease No bowel obstruction or abnormal bowel wall thickening. Small amount of abdominal free fluid Extensive pulmonary nodules bilaterally consistent with pulmonary metastatic disease. Right upper quadrant ultrasound: Heterogeneous enlarged liver with known metastatic disease. Trace fluid. Gallbladder wall thickening and pericholecystic fluid nonspecific in the setting of liver disease and systemic disease present. Abdominal MRI/MRCP: No biliary obstruction extensive liver metastases growing retroperitoneal adenopathy and extensive pulmonary metastases HOSPITAL COURSE Hospital Course: Metastatic colon cancer: patient with multiple metastases, she has elected for hospice treatment Inflammatory liver disease: Transaminases trended down but are trending back up. Possibly related to supplement use. She will not be resuming supplements Cancer associated pain: I have been able to transition her over to oral pain meds. She is on MS Contin 30 mg twice daily. I have recommended that she take oxycodone 10 mg every 6 hours on schedule and she is able to take a as needed dose in between scheduled doses. She may redose oxycodone 45 minutes to an hour after a dose if her pain is not controlled. She will be admitted to hospice in 2 days. And they will take over pain management from that point. Her biggest fear is pain [id number]. I have also prescribed her as needed lorazepam. We have discussed the difference between pain and anxiety and how lorazepam can be a useful adjunct for anxiety even if that anxiety is about pain. Leukocytosis: Patient with rising white blood cell count. She has abdominal pain related to her colon cancer. Her imaging shows widely metastatic disease. She is not having any dysuria. I rechecked a urinalysis on the date of discharge. This is negative. She is not running a fever. I believe her leukocytosis is somehow related to stress response to her cancer.Laboratory Tests 10/12/24 10/13/24 10/14/24 16:49 05:33 04:03 WBC 18.5 H 11.2 H 14.4 H 10/15/24 10/16/24 10/17/24 06:10 05:39 05:37 WBC 16.3 H 19.0 H 26.4 H ALLERGIES Allergies Allergy/AdvReac Type Severity Reaction Status Date / Time No Known Drug Allergies Allergy Verified 10/12/24 16:18 MEDICATIONS Ambulatory Orders Medication Instructions Recorded Confirmed cimetidine 800 mg tablet 800 mg PO HS 09/26/24 10/13/24 cyclobenzaprine 10 mg tablet 10 mg PO HS 09/26/24 10/13/24 docusate sodium 100 mg capsule 100 mg PO DAILY 09/26/24 10/13/24 gabapentin 300 mg capsule 900 mg PO HS 09/26/24 10/13/24 polyethylene glycol 3350 17 17 g PO DAILY 09/26/24 10/13/24 gram/dose oral powder (Miralax) meloxicam 7.5 mg tablet 7.5 mg PO BID #20 tabs 09/27/24 10/13/24 trazodone 50 mg tablet 50 mg PO HS 10/16/24 10/16/24 bisacodyl 10 mg rectal suppository 10 mg [place] DAILY PRN Constipation #3 10/17/24 (Dulcolax (bisacodyl)) ea lorazepam 0.5 mg tablet (Ativan) 0.5 mg PO Q6H PRN Anxiety #10 tabs 10/17/24 morphine 15 mg tablet,extended 30 mg (2 x 15 mg) PO BID #7 tabs 10/17/24 10/13/24 release (MS Contin) ondansetron 4 mg disintegrating 4 mg translingual Q6HR PRN Nausea 10/17/24 tablet / Vomiting #30 tabs oxycodone 10 mg tablet 10 mg PO Q6HR PRN pain #24 tabs 10/17/24 10/13/24 oxycodone 5 mg tablet 10 mg (2 x 5 mg) PO Q6H #24 tabs 10/17/24 sennosides 8.6 mg tablet (senna) 8.6 mg PO BID PRN Constipation #10 10/17/24 tabs venlafaxine 37.5 mg 37.5 mg PO QPM #30 caps 10/17/24 10/16/24 capsule,extended release 24 hr venlafaxine 75 mg capsule,extended 75 mg PO QPM #30 caps 10/17/24 10/16/24 release 24 hr PHYSICAL EXAM AT DISCHARGE Vital Signs: Vital Signs x48h Temp Pulse Resp BP Pulse Ox O2 Flow Rate 10/17/24 13:50 36.0 C L 109 H 16 156/98 H 94 2 Physical Exam Other/Comments: General Appearance: positive No acute distress Eyes Bilateral: positive PERRL ENT: positive No signs of dehydration Neck: positive Nml inspection Respiratory: positive No respiratory distress and Breath sounds nml Cardiovascular: positive Regular rate & rhythm Abdomen: positive No distention Skin: positive Color nml Extremities: positive Non-tender and No pedal edema Neurologic/Psychiatric: positive Oriented x3 LABS 10/17/24 05:37 10/17/24 05:37 FOLLOW UP Follow Up: hospice admission 10/19/24 TIME SPENT Time Spent in Discharge (Minutes): 45 Discharge Plan Discharge Patient Disposition: 50 Hospice/Home DC/Xfer Condition: Stable Prescriptions: New ondansetron 4 mg Tablet,Disintegrating 4 mg translingual Q6HR PRN (Reason: Nausea / Vomiting) Qty: 30 0RF sennosides [senna] 8.6 mg Tablet 8.6 mg PO BID PRN (Reason: Constipation) Qty: 10 0RF Rx Instructions: Take one tablet, by mouth, twice a day as needed for constipation. lorazepam [Ativan] 0.5 mg Tablet 0.5 mg PO Q6H PRN (Reason: Anxiety) Qty: 10 0RF Rx Instructions: Take one tablet, by mouth, every 6 hours as needed for anxiety. bisacodyl [Dulcolax (bisacodyl)] 10 mg Suppository 10 mg [place] DAILY PRN (Reason: Constipation) Qty: 3 0RF Rx Instructions: Unwrap and insert one suppository rectally daily, as needed for constipation. oxycodone 5 mg Tablet 10 mg PO Q6H Qty: 24 0RF Continued gabapentin 300 mg capsule 900 mg PO HS docusate sodium 100 mg capsule 100 mg PO DAILY Patient Comments: TAKE 1 CAPSULE BY MOUTH EVERY DAY polyethylene glycol 3350 [Miralax] 17 gram/dose powder 17 g PO DAILY cyclobenzaprine 10 mg tablet 10 mg PO HS cimetidine 800 mg tablet 800 mg PO HS meloxicam 7.5 mg tablet 7.5 mg PO BID Qty: 20 0RF trazodone 50 mg tablet 50 mg PO HS Changed venlafaxine 37.5 mg capsule,extended release 24hr 37.5 mg PO QPM Qty: 30 0RF venlafaxine 75 mg capsule,extended release 24hr 75 mg PO QPM Qty: 30 0RF morphine [MS Contin] 15 mg tablet extended release 30 mg PO BID Qty: 7 0RF oxycodone 10 mg tablet 10 mg PO Q6HR PRN (Reason: pain) Qty: 24 0RF Activity Restrictions: No Restrictions Diet: Regular Health Concerns: You came into the hospital with abdominal pain that is out of control. Your abdominal pain is secondary to your metastatic colon cancer. Since you have been here we have worked hard on trying to get your pain under control. The regimen that we have finally decided on is for you to take controlled release morphine 30 mg twice a day. Additionally, you will be taking oxycodone 10 mg every 6 hours. I would recommend you take this on a scheduled basis. If you are having pain and you take oxycodone, wait 45 minutes to an hour before you decide if it worked or not. If you feel like the pain medicine does not work after 45 minutes to an hour you may take another tablet. It is not outside the realm of reasonable for you to be taking an oxycodone tablet every 3 hours as needed for your pain. Because the medication has made you tired dizzy and slightly confused I would not recommend that you get your own medication. I would recommend that you have a friend or family member who is controlling your medication and giving it to you as needed. Pain medication can cause constipation so you definitely want to watch out for this. We have prescribed laxatives and I would recommend that you take them. Hospice will be at your home on Saturday to admit you to hospice. They will take care of your pain management after that. Since you have been here we have come up with a regimen that does seem to be controlling your pain. I know you are afraid to have pain and afraid that you will need to come back to the emergency room. However, there is very little that we are doing for you here that cannot be done at home and I think you will be more comfortable at home with your friends and family nearby. 1 thing that concerns me is your white blood cell count. It has been elevated the entire time you have been here. I have checked your urine twice and I do not see that you have a urinary tract infection. I do not see signs or symptoms of infection elsewhere. Your white blood cell count could be reactive to the cancer. I do want to make you aware of this. Please call for medical attention if you start to run a fever at home. You have not run a fever while you have been here. Care Plan Goals: Comfort, to have pain controlled. To be close to friends and family Hospice admission in 2 days Print Language: Indian Patient Instructions: Hospice, Hospice Pain Management Follow-up Care: Deepika Kohler MD [Provider Admit Priv/Credential] - Jacey Aviles ARNP [Provider Admit Priv/Credential] - ANA M DUBON ND [Primary Care Provider] -"
--- NOTE | 2024-10-20 07:40 | ED Physician Documentation ---
ED Addendum Addendum Addendum: Update note, on the day of the second I believe the patient had been in the ER for a few days and was still having considerable pain. She did not have any interventional procedures needed. It was decided apparently utilization review that the patient could be placed in the hospital for intractable pain. Disposition: The patient is placed in observation in stable condition Diagnosis: 1. Cancer associated pain 2. Inflammatory liver disease related to multiple metastases 3. Intractable pain Discharge Plan Discharge Patient Disposition: ED Place in Observation Condition: Stable Clinical Impression: Colon cancer metastasized to multiple sites, Inflammatory liver disease, unspecified Abdominal pain Qualifiers: Abdominal location: right upper quadrant Qualified Code(s): R10.11 - Right upper quadrant pain Interventions: ED Admission Assessment Last Done: 10/13/24 16:19
== END 2024-10-17 15:09 | disposition hospice, home (50) | DRG 947 ==
LOC: ED 15:57 → MS2 10-13 15:45
PROVIDERS: ADMIT Nurse Practitioner Acute Care; ATTEND Nurse Practitioner Acute Care